=== PATIENT | female | born 1940 | race African-American/Black ===

== ENCOUNTER 2019-10-17 11:03 | Observation (INO) | payer OTHER ==
--- OUTSIDE RECORDS SUMMARY | 2019-10-17 11:19 | XMS REPORT | Summary of Care ---
:1940 Author Organization [facility] Address [address] [place] [address] Care Team Providers Name Role Phone Karma Angulo MD Patrol Guard David Dubose MD Primary Care Provider Reason for Visit Reason Comments REFERRAL Encounter Details Date Type Department Care Team Description 06/03/2019 Patient Outreach [facility] Family DarlenekamleshAnthonyKarla, REFERRAL Medicine [place] [address] [phone] [place] [address] [phone] Allergies Active Allergy Reactions Severity Noted Date Comments Penicillins Anaphylaxis 08/22/2014 documented as of this encounter (statuses as of 06/03/2019) Medications Medication Sig Dispensed Refills Start Date End Date Status butalbital-acetaminop Take 2 tablets 10 tablet 0 05/27/2019 Active hen-caff 50-325-40 mg by mouth 2 (two) tabletIndications: times daily as Head and face pain needed (severe headaches). carvedilol 6.25 mg Take 1 tablet by 60 tablet 1 05/27/2019 Active tabletIndications: mouth 2 (two) Essential times daily with hypertension meals. famotidine 40 mg Take 1 tablet by 30 tablet 0 05/27/2019 Active tabletIndications: mouth daily. Abdominal pain, unspecified abdominal location gabapentin 300 mg Take 1 capsule 90 capsule 1 05/27/2019 Active capsuleIndications: by mouth 2 (two) Neuropathy times daily. hydrALAZINE 100 mg Take 1 tablet by 270 tablet 3 05/27/2019 Active tabletIndications: mouth every 8 Essential (eight) hours. hypertension ipratropium-albuterol USE ONE AMPULE 3 Box 3 05/27/2019 Active 0.5 mg-3 mg(2.5 mg IN NEBULIZER base)/3 mL nebulizer EVERY 6 HOURS solutionIndications: Chronic obstructive pulmonary disease, unspecified COPD type Magnesium Oxide 420 Take 400 mg by 30 tablet 0 05/27/2019 Active mg TabIndications: mouth daily. Abdominal pain, unspecified abdominal location ondansetron (ZOFRAN) Take 1 tablet by 12 tablet 0 05/27/2019 Active 4 mg mouth every 8 tabletIndications: (eight) hours as Abdominal pain, needed for unspecified abdominal Nausea and location Vomiting (N/V). proMETHazine 25 mg Take 1 tablet by 30 tablet 0 05/27/2019 Active tabletIndications: mouth 3 (three) Abdominal pain, times daily as unspecified abdominal needed for location Nausea and Vomiting (N/V). SERTraline 100 mg Take 1 tablet by 30 tablet 1 05/27/2019 Active tabletIndications: mouth daily. Anxiety traMADol 50 mg Take 1 tablet by 20 tablet 0 05/27/2019 Active tabletIndications: mouth every 6 Primary (six) hours as osteoarthritis of needed (pain). both knees, Other chronic pain zolpidem (AMBIEN) 5 Take 1 tablet by 30 tablet 5 05/27/2019 06/26/2019 Active mg tabletIndications: mouth at bedtime Primary insomnia as needed for Insomnia for up to 30 days. documented as of this encounter (statuses as of 06/03/2019) Active Problems Problem Noted Date Acute renal failure superimposed on stage 3 chronic kidney disease, 05/29/2019 unspecified acute renal failure type Stage 3 chronic kidney disease 05/29/2019 Head and face pain 05/27/2019 ARNULFO (acute kidney injury) 03/19/2019 Obesity (BMI 30-39.9) 02/04/2019 SOB (shortness of breath) 11/26/2018 Other headache syndrome 10/03/2018 Chronic pain 10/03/2018 Electrolyte abnormality 07/02/2018 UTI (urinary tract infection) 06/18/2018 Pulmonary embolism 06/29/2017 Abdominal pain 06/11/2017 Hypertensive urgency 06/11/2017 Type 2 diabetes mellitus without complication, without long-term current 12/05 use of insulin Left knee pain 08/30/2016 Prediabetes 02/27/2015 Abnormal renal function 02/27/2015 Anxiety 01/27/2015 Insomnia 12/22/2014 Osteoarthritis 12/22/2014 Mixed hyperlipidemia 12/22/2014 Chronic diastolic congestive heart failure 08/22/2014 Neuropathy Bradycardia Anemia COPD (chronic obstructive pulmonary disease) Essential hypertension, benign GERD (gastroesophageal reflux disease) documented as of this encounter (statuses as of 06/03/2019) Resolved Problems Problem Noted Date Resolved Date Elevated troponin 02/04/2019 05/27/2019 E44.0 Moderate protein calorie malnutrition 02/04/2019 05/27/2019 Recurrent UTI 10/03/2018 05/27/2019 Diarrhea 10/03/2018 05/27/2019 Dehydration 10/02/2018 05/27/2019 Hyperkalemia 06/14/2018 05/27/2019 SOB (shortness of breath) 06/29/2017 10/08/2017 Nausea & vomiting 06/11/2017 10/08/2017 Chest pain 06/10/2017 10/08/2017 Morbid obesity with body mass index of 40.0-49.9 11/11/2016 10/08/2017 Morbid obesity with body mass index of 50 or higher 11/11/2016 10/08/2017 CHF exacerbation 03/03/2016 12/05/2016 Cataract 05/27/2019 Hypercalcemia 05/27/2019 Overview: borderline documented as of this encounter (statuses as of 06/03/2019) Immunizations Name Administration Dates Next Due Influenza High Dose 10/03/2018, 10/26/2016 Pneumococcal 13 Conjugate, PCV13 (Prevnar 13) 12/05/2016 documented as of this encounter Social History Tobacco Use Types Packs/Day Years Used Date Former Smoker 0.15 30 Quit: 08/22/1994 Smokeless Tobacco: Never Used Alcohol Use Drinks/Week oz/Week Comments No Sex Assigned at Date Recorded Not on file Job Start Date Occupation Industry Not on file Not on file Not on file Travel History Travel Start Travel End No recent travel history available. documented as of this encounter Last Filed Vital Signs Not on filedocumented in this encounter Progress Notes Karla Snow, Y[place] - 06/03/2019 2:14 PM CDTSOCIAL WORK NOTE: BUSINESS OFFICE COORDINATOR received referral for medication education. Patient is not homebound per MD and chart so referral to [facility] completed for medication education for patient and family. Karla Snow LMSW, [facility]- Ambulatory Batt Machine Operator- Letter Carrier TC: [phone] [place] PCP: [phone] documented in this encounter Plan of Treatment Date Type Specialty Care Team Description 06/04/2019 Office Visit Family Medicine Yony Wilhelm MD [address] [place] [address] [address] [phone] 08/27/2019 Office Visit Nephrology Layla Woods, LANABS [id number] [place] [address] [phone] 11/19/2019 Director Of Development And Marketing Visit Endocrinology Diabetes & MacarioPayal monaco, RD Metabolism [address] [place] [address] [phone] Health Maintenance Due Date Last Done Comments DTaP,Tdap,and Td Vaccines 06/04/2019 Postponed from (1 - Tdap) 1957 (Patient Ill Today) FOOT EXAM 06/04/2019 Postponed from 1956 (Patient Ill Today) Osteoporosis Screening 06/04/2019 Postponed from 2003 (Patient Ill Today) PNEUMOCOCCAL VACCINES 65+ 06/04/2019 12/05/2016 Postponed from (2 of 2 - PPSV23) 12/05/2017 (Patient Ill Today) Zoster Recombinant Vaccine 06/04/2019 Postponed from (SHINGRIX) (1 of 2) 1988 (Patient Ill Today) INFLUENZA VACCINE 07/07/2019 10/03/2018, 10/26/2016 HgA1C 11/28/2019 05/28/2019, 03/18/2019, 05/01/2018, Additional history exists EYE EXAM 12/06/2019 12/06/2018 CREATININE (SERUM) 05/28/2020 05/28/2019, 05/01/2019, 04/29/2019, Additional history exists LDL-C 05/28/2020 05/28/2019, 06/05/2017, 08/28/2015, Additional history exists URINE MICROALBUMIN 05/28/2020 05/28/2019, 08/28/2015 Medicare Wellness Visit 05/29/2020 Postponed from 2003 (Patient Refused) documented as of this encounter Implants Implanted Type Area Podiatrist Orthopedic Device Shelf Model / Identifier Expiration Date Serial / Lot Iol LENS Right: Jamil 11/05/2021 [id number] / Implanted: Qty: 1 on 12/06/2017 by Marco Schaeffer MD at [facility] Eye [id number] / [id number] Acrysofiq LENS Right: Jamil 01/03/2022 [id number] / Implanted: Qty: 1 on 12/20/2017 by Marco Schaeffer MD at [facility] Eye [id number] / [id number] documented as of this encounter Results Not on filedocumented in this encounter Insurance Payer Benefit Plan / Subscriber ID Effective Dates Phone Address Type Group MEDICARE MEDICARE PART xxxxxxxxxxx 1993-Rowena [phone] [address] Medicare A [address] [id number] [place] [id number] documented as of this encounter
--- OUTSIDE RECORDS SUMMARY | 2019-10-17 11:19 | XMS REPORT | Summary of Care ---
:1940 Author Organization [facility] Address [address] [place] [address] Care Team Providers Name Role Phone Karma Angulo MD Record Clerk Salesperson David Dubose MD Primary Care Provider Reason for Visit Reason Comments Forms Requesting more information Encounter Details Date Type Department Care Team Description 05/29/2019 Telephone [facility] Pediatric Yony Wilhelm MD Forms (Requesting more and Adult Primary [address] [place] [address] Dr information) [address] , [place] [address] [address] [place] [address] Allergies Active Allergy Reactions Severity Noted Date Comments Penicillins Anaphylaxis 08/22/2014 documented as of this encounter (statuses as of 05/31/2019) Medications Medication Sig Dispensed Refills Start Date [...] as of this encounter (statuses as of 05/31/2019) Active Problems Problem Noted Date Acute renal [...] as of this encounter (statuses as of 05/31/2019) Resolved Problems Problem Noted Date Resolved Date [...] as of this encounter (statuses as of 05/31/2019) Immunizations Name Administration Dates Next Due Influenza [...] Signs Not on filedocumented in this encounter Plan of Treatment Date Type Specialty Care Team Description 06/04/2019 Office Visit Family Medicine Yony Wilhelm MD [address] [place] [address] [place] [address] [phone] 08/27/2019 Office Visit Nephrology Layla Woods, LANABS [id number] [place], [place] [address] 11/19/2019 Jamb Cutter Visit Endocrinology Diabetes & MacarioPayal monaco, RD Metabolism [address] [place] [address] Health Maintenance Due Date Last Done Comments [...] of this encounter Implants Implanted Type Area E D Tech Device Shelf Model / Identifier Expiration Date Serial / Lot Iol LENS Right: Jamil 11/05/2021 [id number] / Implanted: Qty: 1 on 12/06/2017 by Marco Schaeffer MD at [facility] Eye [id number] / [id number] Acrysofiq LENS Right: Jamil 01/03/2022 [id number] / Implanted: Qty: 1 on 12/20/2017 by Marco Schaeffer MD at [facility] Eye [id number] / [id number] documented as of this encounter Results Not on filedocumented in this encounter Insurance Payer Benefit Plan / Subscriber ID Effective Dates Phone Address Type Group MEDICARE MEDICARE PART xxxxxxxxxxx 1991-Rowena [phone] [address] [facility] Medicare A & B t 2 [id number] [place] [id number] documented as of this encounter
--- OUTSIDE RECORDS SUMMARY | 2019-10-17 11:20 | XMS REPORT | Summary of Care ---
:1940 Author Organization [facility] Address [address] [place] [address] Care Team Providers Name Role Phone Karma Angulo MD Appian B[employer] Developer David Dubose MD Primary Care Provider Reason for Referral (Routine) Status Reason Specialty Diagnoses / Referred By Referred To Procedures Contact Contact New Request Nephrology Diagnoses Stage 3 chronic kidney disease Yony Wilhelm, Procedures CONSULT/REFERRAL NEPHROLOGY [address] [place] [address] Dr Schulte [address] [place] [address] (Routine) Status Reason Specialty Diagnoses / Referred By Referred To Procedures Contact Contact Closed Public Health & Diagnoses Medicare annual wellness visit, subsequent Yony Wilhelm, General Preventive Procedures CONSULT/REFERRAL MEDICARE ANNUAL WELLNESS VISIT MD Montes [address] [place] [address] Dr Schulte [address] [place] [address] Reason for Visit Reason Comments Follow-up Hypertension Headache 08/15 Refill Request Encounter Details Date Type Department Care Team Description 05/27/2019 Office Visit [facility] Yony Wilhelm, Hypertensive urgency (Primary Dx); Pediatric and Adult Medicare annual wellness visit, subsequent; Primary Care- [address] [place] [address] Dr Pino; [place] [address] Epigastric pain; [address] [place] [address] , [place] [address] Essential hypertension; [address] Abdominal pain, unspecified abdominal location; [place], [place] Primary insomnia; [address] Encounter for medication refill; [phone] Hyperkalemia; Hypercalcemia; Anemia, unspecified type; Type 2 diabetes mellitus without complication, without long-term current use of insulin; Head and face pain; Chronic obstructive pulmonary disease, unspecified COPD type; Mixed hyperlipidemia; Neuropathy; Primary osteoarthritis of both knees; Other chronic pain; Stage 3 chronic kidney disease Allergies Active Allergy Reactions Severity Noted Date Comments Penicillins Anaphylaxis 08/22/2014 documented as of this encounter (statuses as of 06/04/2019) Medications Medication Sig Dispensed Refills Start Date End Date Status butalbital-acetamino Take 2 tablets 10 tablet 0 05/27/2019 Active phen-caff 50-325-40 by mouth 2 mg (two) times tabletIndications: daily as Head and face pain needed (severe headaches). carvedilol 6.25 mg Take 1 tablet 60 tablet 1 05/27/2019 Active tabletIndications: by mouth 2 Essential (two) times hypertension daily with meals. famotidine 40 mg Take 1 tablet 30 tablet 0 05/27/2019 Active tabletIndications: by mouth Abdominal pain, daily. unspecified abdominal location gabapentin 300 mg Take 1 capsule 90 capsule 1 05/27/2019 Active capsuleIndications: by mouth 2 Neuropathy (two) times daily. hydrALAZINE 100 mg Take 1 tablet 270 tablet 3 05/27/2019 Active tabletIndications: by mouth every Essential 8 (eight) hypertension hours. ipratropium-albutero USE ONE AMPULE 3 Box 3 05/27/2019 Active l 0.5 mg-3 mg(2.5 mg IN NEBULIZER base)/3 mL nebulizer EVERY 6 HOURS solutionIndications: Chronic obstructive pulmonary disease, unspecified COPD type Magnesium Oxide 420 Take 400 mg by 30 tablet 0 05/27/2019 Active mg TabIndications: mouth daily. Abdominal pain, unspecified abdominal location ondansetron (ZOFRAN) Take 1 tablet 12 tablet 0 05/27/2019 Active 4 mg by mouth every tabletIndications: 8 (eight) Abdominal pain, hours as unspecified needed for abdominal location Nausea and Vomiting (N/V). proMETHazine 25 mg Take 1 tablet 30 tablet 0 05/27/2019 Active tabletIndications: by mouth 3 Abdominal pain, (three) times unspecified daily as abdominal location needed for Nausea and Vomiting (N/V). SERTraline 100 mg Take 1 tablet 30 tablet 1 05/27/2019 Active tabletIndications: by mouth Anxiety daily. traMADol 50 mg Take 1 tablet 20 tablet 0 05/27/2019 Active tabletIndications: by mouth every Primary 6 (six) hours osteoarthritis of as needed both knees, Other (pain). chronic pain zolpidem (AMBIEN) 5 Take 1 tablet 30 tablet 5 05/27/2019 Active mg by mouth at 9 tabletIndications: bedtime as Primary insomnia needed for Insomnia for up to 30 days. butalbital-acetamino Take 2 tablets 10 tablet 0 10/03/2018 Discontinued phen-caff 50-325-40 by mouth 2 9 mg tablet (two) times daily as needed (severe headaches). magnesium oxide 420 Take 400 mg by 30 tablet 0 10/03/2018 Discontinued mg Tab mouth daily. 9 carvedilol 6.25 mg Take 1 tablet 60 tablet 1 11/28/2018 Discontinued tabletIndications: by mouth 2 9 Anxiety (two) times daily with meals. SERTraline 100 mg Take 1 tablet 30 tablet 1 11/28/2018 Discontinued tabletIndications: by mouth 9 Anxiety daily. zolpidem (AMBIEN) 5 Take 1 tablet 305 tablet 5 12/07/2018 Discontinued mg by mouth at 9 tabletIndications: bedtime as Primary insomnia needed for Insomnia. hydralAZINE 100 mg Take 1 tablet 270 tablet 3 12/16/2018 Discontinued tabletIndications: by mouth every 9 Essential 8 (eight) hypertension, benign hours. gabapentin 300 mg Take 1 capsule 90 capsule 1 12/23/2018 Discontinued capsuleIndications: by mouth 2 9 Anxiety (two) times daily. IPRATROPIUM-ALBUTERO USE ONE AMPULE 3 Box 3 12/21/2018 Discontinued L 0.5 mg-3 mg(2.5 mg IN NEBULIZER 9 base)/3 mL nebulizer EVERY 6 HOURS solution hydralAZINE 100 mg Take 1 tablet 30 tablet 0 01/27/2019 Discontinued tabletIndications: by mouth every 9 Essential 8 (eight) hypertension, hours. Medication refill ondansetron (ZOFRAN) Take 1 tablet 12 tablet 0 01/27/2019 Discontinued 4 mg by mouth every 9 tabletIndications: 8 (eight) Essential hours as hypertension needed for Nausea and Vomiting (N/V). famotidine 40 mg Take 1 tablet 30 tablet 0 02/01/2019 Discontinued tabletIndications: by mouth 9 Epigastric pain daily. traMADOL 50 mg Take 1 tablet 20 tablet 0 02/01/2019 Discontinued tabletIndications: by mouth every 9 Epigastric pain 6 (six) hours as needed (pain). ondansetron 4 mg Take 2 tablets 20 tablet 0 02/01/2019 Discontinued tabletIndications: by mouth every 9 Epigastric pain 8 (eight) hours as needed for Nausea and Vomiting (N/V). proMETHazine 25 mg Take 1 tablet 30 tablet 0 02/05/2019 Discontinued tabletIndications: by mouth 3 9 Abdominal pain, (three) times unspecified daily as abdominal location needed for Nausea and Vomiting (N/V). zolpidem (AMBIEN) 5 Take 1 tablet 305 tablet 5 05/27/2019 Discontinued mg by mouth at 9 tabletIndications: bedtime as Primary insomnia needed for Insomnia. Hospital, Clinic, or Other Ordered Dose Route Frequency Start Date End Date Status Facility Administered Medication cloNIDine (CATAPRES) tablet 0.2 mg Oral ONCE 05/27/2019 05/27/2019 Ended 0.2 mgIndications: Hypertensive urgency documented as of this encounter (statuses as of 06/04/2019) Active Problems Problem Noted Date Acute renal [...] as of this encounter (statuses as of 06/04/2019) Resolved Problems Problem Noted Date Resolved Date [...] as of this encounter (statuses as of 06/04/2019) Immunizations Name Administration Dates Next Due Influenza [...] of this encounter Last Filed Vital Signs Vital Sign Reading Time Taken Comments Blood Pressure 149/76 05/27/2019 11:52 AM CDT Pulse 78 05/27/2019 11:01 AM CDT Temperature 35.9 C (96.7 F) 05/27/2019 11:01 AM CDT Respiratory Rate 18 05/27/2019 11:01 AM CDT Oxygen Saturation 99% 05/27/2019 11:01 AM CDT Inhaled Oxygen Concentration - - Weight 91.2 kg (201 lb 1.6 oz) 05/27/2019 11:01 AM CDT Height - - Body Mass Index 36.78 03/18/2019 11:38 PM CDT documented in this encounter Progress Notes Yony Wilhelm MD - 05/27/2019 10:30 AM CDT Family Medicine Clinic Follow up visit Visit date: 05/27/2019 Chief complaint: Follow-up; Hypertension; Headache (08/15); and Refill Request HPI: Daksha Olson is a 78 year old female w/ PMHx below who presented to the clinic for follow-up s/p rehab for fall at home. She is accompanied with her daughter (Megan Pederson). At this visit, patient notes she completed rehab last week at [facility]. Patient can walk independently using a walker with wheels. Today, she c/o headache 08/15 for a while for almost a year. She received botox injection in the past to help with headaches. Patient is currently out of all her medications since completing rehab and requests refills. Otherwise, denies F/C/N/V chest pain or SOB. PAST MEDICAL HISTORY: Past Medical History: Diagnosis Date Anemia Anxiety Bradycardia Cataract CKD (chronic kidney disease) COPD (chronic obstructive pulmonary disease) Depression Diabetes mellitus Essential hypertension, benign well controlled GERD (gastroesophageal reflux disease) well controlled Heart disease History of pulmonary embolism 2017 was on blood thinners for several months History of stroke remote lacunar stroke seen on CT from 06/2018. Hypercalcemia borderline Insomnia Left knee pain 08/30/2016 Neuropathy Obesity Other and unspecified hyperlipidemia Prediabetes Recurrent UTI 10/03/2018 Unspecified hypothyroidism Unspecified vitamin D deficiency UTI (urinary tract infection) due to Enterococcus Constitutional: In some discomfort Head/neck: headache Eyes: negative Ears: negative Nose/Sinuses: negative Mouth/Throat: negative Cardiovascular: negative Respiratory: negative Gastrointestinal: negative Genitourinary: negative Musculoskeletal: negative Integumentary: negative Neuro: negative Psych: negative Endocrine: negative Hem/Lymph: negative Allergy/Immunology: negative MEDS: Outpatient Medications Marked as Taking for the 05/27/19 encounter (Office Visit ) with Yony Wilhelm MD Medication Sig Dispense Refill wwimlpzmrv-vbygdbxvdenek-ileq 50-325-40 mg tablet Take 2 tablets by mouth 2 (two) times daily asneeded (severe headaches). 10 tablet 0 carvedilol 6.25 mg tablet Take 1 tablet by mouth 2 (two) times daily with meals. 60 tablet 1 famotidine 40 mg tablet Take 1 tablet by mouth daily. 30 tablet 0 gabapentin 300 mg capsule Take 1 capsule by mouth 2 (two) times daily. 90 capsule 1 hydrALAZINE 100 mg tablet Take 1 tablet by mouth every 8 (eight) hours. 270 tablet 3 ipratropium-albuterol 0.5 mg-3 mg(2.5 mg base)/3 mL nebulizer solution USE ONE AMPULE IN NEBULIZER EVERY 6 HOURS 3 Box 3 Magnesium Oxide 420 mg Tab Take 400 mg by mouth daily. 30 tablet 0 ondansetron (ZOFRAN) 4 mg tablet Take 1 tablet by mouth every 8 (eight) hours as needed for Nausea and Vomiting (N/V). 12 tablet 0 proMETHazine 25 mg tablet Take 1 tablet by mouth 3 (three) times daily as needed for Nausea and Vomiting (N/V). 30 tablet 0 SERTraline 100 mg tablet Take 1 tablet by mouth daily. 30 tablet 1 traMADol 50 mg tablet Take 1 tablet by mouth every 6 (six) hours as needed ( pain). 20 tablet 0 zolpidem (AMBIEN) 5 mg tablet Take 1 tablet by mouth at bedtime as needed for Insomnia for up to30 days. 30 tablet 5 PHYSICAL EXAM: Blood pressure (!) 149/76, pulse 78, temperature 35.9 C (96.7 F), temperature source Temporal Artery, resp. rate 18, weight 201 lb 1.6 oz (91.2 kg ), SpO2 99 %. Appearance: comfortable, no distress Eye: normal external eye, corneas clear, conjunctiva and sclera normal and pupils equal, round, reactive to light Ear: normal TM's bilaterally, normal auditory canals and external ears non- tender Nose: nares normal, septum midline, mucosa pink and moist with no drainage or sinus tenderness Oropharynx: moist mucus membranes, no erythema or tonsillar enlargement Neck: neck supple with no rigidity Cardiovascular: regular rate and rhythm, no murmur Respiratory: clear to auscultation and percussion, bilaterally Abdomen: soft, non-tender, non-distended, no liver, spleen or abnormal masses palpated Musculoskeletal: no clubbing, cyanosis or edema, peripheral pulses 2+ in all extremities Neurologic: normal gait and station Psychiatric: alert, oriented, with appropriate affect Skin: skin color, texture and turgor are normal; no bruising, rashes or lesions noted LABS: Reviewed with patient and daughter, all questions answered Imaging: N/A ASSESSMENT/PLAN: Daksha Olson is a 78 year old female seen for establishment of care with a new provider including: Hypertensive urgency - BP also elevated as complication of chronic pain syndrome - Need for medication compliance discussed - Need to keep home BP log - cloNIDine (CATAPRES) tablet 0.2 mg - FREE T4 - THYROID STIMULATING HORMONE - MAGNESIUM - PHOSPHORUS - COMP. METABOLIC PANEL (15387) - CBC WITH DIFF - CBC WITH DIFFERENTIAL History Essential hypertension - carvedilol 6.25 mg tablet; Take 1 tablet by mouth 2 (two) times daily with meals. Dispense: 60 tablet; Refill: 1 - hydrALAZINE 100 mg tablet; Take 1 tablet by mouth every 8 (eight) hours. Dispense: 270 tablet; Refill: 3 History of Stage 3 Chronic Kidney Disease - Complicating BP - Abnormal microalbumin. - MicroAl/Cr 67,742 consistent with probable insufficient glomerular filtration and hx CKD. - Need to follow-up with Nephrology. Head and face pain - ipbotmzkxo-jlhnakkcufvbd-yxqi 50-325-40 mg tablet; Take 2 tablets by mouth 2 ( two) times daily as needed (severe headaches). Dispense: 10 tablet; Refill: 0 History Abdominal pain, unspecified abdominal location - r/o chronic constipation. Patient encouraged to maintain hydration, fruits to promote regular bowel movement - famotidine 40 mg tablet; Take 1 tablet by mouth daily. Dispense: 30 tablet; Refill: 0 - Magnesium Oxide 420 mg Tab; Take 400 mg by mouth daily. Dispense: 30 tablet; Refill: 0 - ondansetron (ZOFRAN) 4 mg tablet; Take 1 tablet by mouth every 8 (eight) hours as needed for Nausea and Vomiting (N/V). Dispense: 12 tablet; Refill: 0 - proMETHazine 25 mg tablet; Take 1 tablet by mouth 3 (three) times daily as needed for Nausea and Vomiting (N/V). Dispense: 30 tablet; Refill: 0 Chronic obstructive pulmonary disease, unspecified COPD type - ipratropium-albuterol 0.5 mg-3 mg(2.5 mg base)/3 mL nebulizer solution; USE ONE AMPULE IN NEBULIZER EVERY 6 HOURS Dispense: 3 Box; Refill: 3 Mixed hyperlipidemia - LIPID PANEL (37022)(TOTAL CHOLESTEROL, TRIGLYCERIDES, HDL) Neuropathy - gabapentin 300 mg capsule; Take 1 capsule by mouth 2 (two) times daily. Dispense: 90 capsule; Refill: 1 Primary osteoarthritis of both knees - Complicated by history other chronic pain syndrome (neck, joints) - traMADol 50 mg tablet; Take 1 tablet by mouth every 6 (six) hours as needed ( pain). Dispense: 20 tablet; Refill: 0 Need for Medicare annual wellness visit, subsequent - CONSULT/REFERRAL MEDICARE ANNUAL WELLNESS VISIT Anxiety - SERTraline 100 mg tablet; Take 1 tablet by mouth daily. Dispense: 30 tablet; Refill: 1 Primary insomnia - zolpidem (AMBIEN) 5 mg tablet; Take 1 tablet by mouth at bedtime as needed for Insomnia for up to 30 days. Dispense: 30 tablet; Refill: 5 Anemia, unspecified type - IRON Type 2 diabetes mellitus without complication, without long-term current use of insulin - GLYCOSYLATED HEMOGLOBIN (A1C) - MICROALBUMIN URINE Medication reconciliation and anticipatory guidance completed. Patient instructed to call or return to clinic as needed if these symptoms worsen or fail to improve as anticipated. Plan of care discussed with patient and patient verbalized understanding. Side effects of medication prescribed discussed and patient instructed to call clinic back if any should occur Follow-up: 1 week for annual medicare examiantion, subsequent >50% of visit was for counseling and coordination of care with patient as documented under plans above. Total visit time 30 Minutes. Future Appointments Provider Department Dept Phone Center 06/04/2019 9:15 AM Yony Wilhelm MD [facility] Pediatric and Adult Primary Care- [place] [phone] [facility] Lolis Tian LVN - 05/27/2019 10:30 AM CDT78 year old female has been identified by and name, patient has given verbal consent to receive Clonidine 0.2 mg via oral administration, as ordered by the provider. Previous/Current Encounter Diagnosis: Hypertension Patient education included information about the desired effects of the medication(s) given in the clinic today. Lolis Zuniga LVN 05/27/2019 11:20 AM documented in this encounter Plan of Treatment Date Type Specialty Care Team Description 08/27/2019 Office Visit Nephrology Layla Woods, LANABS [id number] [place] [address] 11/19/2019 Braille Proofreader Visit Endocrinology Diabetes & MacarioPayal monaco, RD Metabolism [address] [place] [address] Health Maintenance Due Date Last [...] of this encounter Implants Implanted Type Area String Top Sealer Device Shelf Model / Identifier Expiration Date Serial / Lot Iol LENS Right: Jamil 11/05/2021 [id number] / Implanted: Qty: 1 on 12/06/2017 by Marco Schaeffer MD at [facility] [id number] / [id number] Acrysofiq LENS Right: Jamil 01/03/2022 [id number] / Implanted: Qty: 1 on 12/20/2017 by Marco Schaeffer MD at [facility] [id number] / [id number] documented as of this encounter Procedures Procedure Name Priority Date/Time Associated Diagnosis Comments CBC WITH Routine 05/28/2019 12:40 Hypertensive urgency Results for this DIFFERENTIAL PM CDT procedure are in the results section. GLYCOSYLATED Routine 05/28/2019 12:40 Type 2 diabetes Results for this HEMOGLOBIN (A1C) PM CDT mellitus without procedure are in complication, without the results long-term current use section. of insulin CBC WITH DIFF Routine 05/28/2019 12:40 Hypertensive urgency Results for this PM CDT procedure are in the results section. LIPID PANEL Routine 05/28/2019 12:40 Mixed hyperlipidemia Results for this (02256)(TOTAL PM CDT procedure are in CHOLESTEROL, the results TRIGLYCERIDES, HDL) section. COMP. METABOLIC Routine 05/28/2019 12:40 Hypertensive urgency Results for this PANEL (99388) PM CDT procedure are in the results section. MICROALBUMIN URINE Routine 05/28/2019 12:40 Type 2 diabetes Results for this PM CDT mellitus without procedure are in complication, without the results long-term current use section. of insulin THYROID STIMULATING Routine 05/28/2019 12:40 Hypertensive urgency Results for this HORMONE PM CDT procedure are in the results section. FREE T4 Routine 05/28/2019 12:40 Hypertensive urgency Results for this PM CDT procedure are in the results section. IRON Routine 05/28/2019 12:40 Anemia, unspecified Results for this PM CDT type procedure are in the results section. MAGNESIUM Routine 05/28/2019 12:40 Hypertensive urgency Results for this PM CDT procedure are in the results section. PHOSPHORUS Routine 05/28/2019 12:40 Hypertensive urgency Results for this PM CDT procedure are in the results section. documented in this encounter Results LIPID PANEL (18060)(TOTAL CHOLESTEROL, TRIGLYCERIDES, HDL) (05/28/2019 12:40 PM CDT) CHOL 212 (H) 120 - 200 mg/dL [facility] HDL 47 (L) >50 mg/dL [facility] HDLC RATIO 4.5 <=4.5 [facility] TRIG 113 30 - 170 mg/dL [facility] LDL CHOL 142 <=160 mg/dL [facility] VLDL 23 5 - 60 mg/dL [facility] Specimen Blood Performing Organization Address City/State/Zipcode Phone Number [facility] CLIA: [id number], [address] [place] [address] MICROALBUMIN URINE (05/28/2019 12:40 PM CDT) CREAT U 39.2 mg/dL [facility] MICROALB U 235 (H) 0 - 45 ug/mL [facility] MICROAL/CR 67,742 (H) 0-3,500 ug/mmol [facility] creatinine SERVICES Specimen Urine - URINE, CLEAN CATCH Performing Organization Address City/State/Zipcode Phone Number [facility] CLIA: [id number], [address] [place] [id number] [phone] [facility] GLYCOSYLATED HEMOGLOBIN (A1C) (05/28/2019 12:40 PM CDT) HGB A1C 4.7 4.0 - 6.0 % NGSP [facility] Specimen Blood Narrative Performed At %A1C (NGSP) Interpretation (ADA) [facility] 4.8-5.6 Normal or (Non-Diabetic Range) 5.7-6.4 Increased Risk (Pre-Diabetic) >6.5Diabetes Indicated Performing Organization Address [facility] Phone Number [facility] CLIA: [id number], [address] [place] [address] CBC WITH DIFFERENTIAL (05/28/2019 12:40 PM CDT) WBC 5.95 4.30 - 11.10 [facility] 10*3/L HOSPITAL LABORATORY RBC 3.30 (L) 3.93 - 5.25 [facility] 10*6/L HOSPITAL LAB[facility]ORY HGB 8.9 (L) 11.6 - 15.0 [facility] g/dL HOSPITAL LAB[facility] HCT 26.7 (L) 35.7 - 45.2 % [facility] MCV 80.9 80.6 - 95.5 fL [facility] MCH 27.0 25.9 - 32.8 pg [facility] MCHC 33.3 31.6 - 35.1 [facility] g/dL [facility] RDW-SD 40.8 39.0 - 49.9 fL [facility] RDW-CV 13.9 12.0 - 15.5 % [facility] PLT 188 166 - 358 [facility] 10*3/L [facility] MPV 10.2 9.5 - 12.9 fL [facility] NRBC/100 WBC 0.0 0.0 - 10.0 /100 [facility] WBCs [facility] NRBC x10^3 <0.01 10*3/L [facility] GRAN MAT (NEUT) % 32.0 % [facility] IMM GRAN % 0.30 % [facility] LYMPH % 52.9 % [facility] MONO % 10.1 % [facility] EOS % 4.2 % [facility] BASO % 0.5 % [facility] GRAN MAT x10^3(ANC) 1.90 1.88 - 7.09 [facility] 10*3/uL HOSPITAL LABORATORY IMM GRAN x10^3 <0.03 0.00 - 0.06 [facility] 10*3/uL HOSPITAL LAB[facility]ORY LYMPH x10^3 3.15 1.32 - 3.29 [facility] 10*3/uL HOSPITAL LAB[facility]ORY MONO x10^3 0.60 0.33 - 0.92 [facility] 10*3/uL HOSPITAL LAB[facility]ORY EOS x10^3 0.25 0.03 - 0.39 [facility] 10*3/uL HOSPITAL LAB[facility]ORY BASO x10^3 0.03 0.01 - 0.07 [facility] 10*3/uL HOSPITAL LABORATORY Specimen Blood Performing Organization Address City/State/Zipcode Phone Number [facility] CLIA: [id number], [address] [place] [address] COMP. METABOLIC PANEL (61102) (05/28/2019 12:40 PM CDT) NA 140 135 - 145 [facility] mmol/L [facility] K 5.2 (H) 3.5 - 5.0 [facility] mmol/L [facility] CL 109 (H) 98 - 108 mmol/L [facility] CO2 TOTAL 22 (L) 23 - 31 mmol/L [facility] AGAP 9 2 - 16 [facility] BUN 39 (H) 7 - 23 mg/dL [facility] GLUCOSE 64 (L) 70 - 110 mg/dL [facility] CREATININE 2.02 (H) 0.50 - 1.04 [facility] mg/dL [facility] TOTAL BILI 0.2 0.1 - 1.1 mg/dL [facility] CALCIUM 10.2 8.6 - 10.6 [facility] mg/dL [facility] T PROTEIN 6.7 6.3 - 8.2 g/dL [facility] ALBUMIN 3.8 3.5 - 5.0 g/dL [facility] ALK PHOS 84 34 - 122 U/L [facility] ALT(SGPT) 12 9 - 51 U/L [facility] AST(SGOT) 27 13 - 40 U/L [facility] eGFR Calculation 23.7 mL/min/1.73m2 [facility] ([facility] LABORATORY [place]) eGFR Calculation 28.7 mL/min/1.73m2 [facility] () [facility] Specimen Blood Narrative Performed At Association of Glomerular Filtration Rate (GFR) [facility] and Staging of Kidney Disease* + + +- + | GFR (mL/min/1.73 m2)| With Kidney Damage|Without Kidney Damage + + +- + |>90| Stage one| Normal + + +- + |60-89|S tage two| Decreased GFR + + +- + |30-59|S tage three| Stage three + + +- + |15-29|S tage four | Stage four + + +- + |<15 (or dialysis)|Stage five | Stage five + + +- + *Each stage assumes the associated GFR level has been in effect for at least three months.Stages 1 to 5, with or without kidney disease, indicate chronic kidney disease. Notes: Determination of stages one and two (with eGFR >59mL/min/1.73 m2) requires estimation of kidney damage for at least three months as defined by structural or functional abnormalities of the kidney, manifested by either: Pathological abnormalities or Markers of kidney damage (including abnormalities in the composition of the blood or urine or abnormalities in imaging tests). Performing Organization Address [facility] Phone Number [facility] CLIA: [id number], [address] [place] [address] PHOSPHORUS (05/28/2019 12:40 PM CDT) PHOSPHORUS 4.0 2.5 - 5.0 mg/dL [facility] Specimen Blood Performing Organization Address [facility] Phone Number [facility] CLIA: [id number], [address] [place] [address] MAGNESIUM (05/28/2019 12:40 PM CDT) MAGNESIUM 2.0 1.7 - 2.4 mg/dL [facility] Specimen Blood Performing Organization Address [facility] [place] Phone Number [facility] CLIA: [id number], [address] [place] [address] THYROID STIMULATING HORMONE (05/28/2019 12:40 PM CDT) TSH 1.87 0.45 - 4.70 mIU/L [facility] Specimen Blood Performing Organization Address [facility] [place] Phone Number [facility] CLIA: [id number], [address] [place] [address] FREE T4 (05/28/2019 12:40 PM CDT) FREE T4 0.78 0.78 - 2.20 ng/dL [facility] Specimen Blood Performing Organization Address [facility] [place] Phone Number [facility] CLIA: [id number], [address] [place] [address] IRON (05/28/2019 12:40 PM CDT) IRON 77 50 - 160 ug/dL [facility] Specimen Blood Performing Organization Address City/State/Zipcode Phone Number [facility] CLIA: [id number], [address] [place] [address] documented in this encounter Visit Diagnoses Diagnosis Hypertensive urgency - Primary Unspecified essential hypertension Medicare annual wellness visit, subsequent Routine general medical examination at a health care facility Anxiety Anxiety state, unspecified Epigastric pain Abdominal pain, epigastric Essential hypertension Unspecified essential hypertension Abdominal pain, unspecified abdominal location Primary insomnia Persistent disorder of initiating or maintaining sleep Encounter for medication refill Issue of repeat prescriptions Hyperkalemia Hyperpotassemia Hypercalcemia Anemia, unspecified type Type 2 diabetes mellitus without complication, without long-term current use of insulin Head and face pain Headache Chronic obstructive pulmonary disease, unspecified COPD type Mixed hyperlipidemia Neuropathy Mononeuritis of unspecified site Primary osteoarthritis of both knees Primary localized osteoarthrosis, lower leg Other chronic pain Stage 3 chronic kidney disease documented in this encounter Administered Medications Medication Order MAR Action Action Date Dose Rate Site cloNIDine (CATAPRES) tablet 0.2 Given 05/27/2019 11:18 AM CDT 0.2 mg mg 0.2 mg, Oral, ONCE, 1 dose, 05/27/19 at 1215, Routine documented in this encounter Insurance Payer Benefit Plan / Subscriber ID Effective Dates Phone Address Type Group MEDICARE MEDICARE PART xxxxxxxxxxx 1991-Rowena [phone] [address] [id number] [place] [phone] documented as of this encounter"
--- OUTSIDE RECORDS SUMMARY | 2019-10-17 11:20 | XMS REPORT ---
:1940 [facility] Address [address] [place] [address] [address] [place] [address] Care Team Providers Name Role Phone Unavailable Unavailable Unavailable Payers Payer Name Policy Type Policy Number Effective Date Expiration Date Problems This patient has no known problems. Allergies, Adverse Reactions, Alerts Allergy Name Allergy Status Severity Reaction(s) Onset Inactive Treating Comments Type Date Date Clinician Penicillins DA Active U 2011-10 00:00:0 0 Medications This patient has no known medications. Results Test Description Test Time Test Comments Text Results Atomic Results Result Comments - CT 2019-02-19 FAX: Reyes Flores Jr [phone] [employer]: St: HEAD/BRAIN 11:19:00 REG W/O CONT Name: PERLITA SANCHEZ [facility] : 1940 Age/S: 78/F [address] Unit: [id number] Loc: [place] [address] Phys: Reyes Dominguez Jr, MD Acct: [id number] Dis Date: Status: REG CLI PHONE #: Exam Date: 02/19/2019 1055 FAX #: [phone] Reason: PAIN EXAMS: CPT CODE: [id number] CT HEAD/BRAIN W/O CONT [id number] EXAM: - CT HEAD/BRAIN W/O CONT Location code:C3 HISTORY: 78 years -old Female with PAIN TECHNIQUE: Axial CT images from the skull base to the vertex without intravenous contrast. Coronal and sagittal reformatted images were created from the data set. One or more of the following dose reduction techniques were used: Automated exposure control, adjustment of the mA and/or kV according to patient size, and/or utilization of iterative reconstruction technique. DLP: 1284.65 mGy-cm. COMPARISON: 2017 FINDINGS: Exam was limited due to patient motion despite repeated attempts. Portions of the inferior right posterior fossa are not within the field of view. Diminished attenuation in the periventricular white matter indicative of moderate chronic small vessel white matter ischemic disease is similar. No gross acute infarction, intraparenchymal mass, or mass effect. No hydrocephalus. No hemorrhage is seen. The visualized paranasal sinuses and calvarium are intact. IMPRESSION: 1. Limited exam due to patient motion despite repeated attempts. Moderate chronic small vessel white matter ischemic disease is present with no significant interval change. at 1119 Reported and signed by: Julián Hernandez MD CC: Reyes Dominguez Jr Technologist: NUPUR STOLL Trnscrd Dt/Tm: ([id number]) [email or web address] Orig Print D/T: S: 02/19/2019 ( 1122 PAGE 1 Signed Report
--- OUTSIDE RECORDS SUMMARY | 2019-10-17 11:21 | XMS REPORT | Summary of Care ---
:1940 Author Organization [facility] Address [address] [place] [address] Care Team Providers Name Role Phone Karma Angulo MD Family Preservation Officer David Dubose MD Primary Care Provider Reason for Referral Radiology Services (Routine) Status Reason Specialty Diagnoses / Referred By Referred To Procedures Contact Contact New Request Diagnostic Diagnoses Screening for osteoporosis Edemekong, Radiology Procedures DEXA PERIPHERAL (FOREARM) MD Yony [address] [place] [address] [address] Radiology Services (Routine) Status Reason Specialty Diagnoses / Referred By Referred To Procedures Contact Contact New Request Diagnostic Diagnoses Screening for osteoporosis Edemekong, Radiology Procedures DEXA AXIAL (HIP AND SPINE) MD Yony [address] [place] [address] [place] [phone] (Routine) Status Reason Specialty Diagnoses / Referred By Referred To Procedures Contact Contact New Request Physical Therapy Diagnoses Head and face pain Acute renal failure superimposed on stage 3 chronic kidney disease, unspecified acute renal failure type Other chronic pain Edemekong, Adc Physical Procedures CONSULT/REFERRAL PHYSICAL THERAPY MD Yony Therapy [address] [place] [address] [address] [address] Phone: [place], [place] [phone] Fax: Reason for Visit Reason Comments Follow-up Headache Encounter Details Date Type Department Care Team Description 06/04/2019 Office Visit [facility] Yony Wilhelm, Acute renal failure superimposed on stage 3 chronic kidney disease, unspecified acute renal failure type (Primary Dx); Pediatric and Adult MD Head and face pain; [facility] Stage 3 chronic [facility] disease; [place] [address] Other chronic pain; [address] [place] [address] , [place] [address] Encounter for medication refill; [address] Chronic obstructive pulmonary disease, unspecified COPD type; [place], [place] Primary osteoarthritis of both knees; [id number] Need for Tdap vaccination; [phone] Need for pneumococcal vaccine; Screening for osteoporosis; Type 2 diabetes mellitus without complication, without long-term current use of insulin Allergies Active Allergy Reactions Severity Noted Date Comments Penicillins Anaphylaxis 08/22/2014 documented as of this encounter (statuses as of 06/04/2019) Medications Medication Sig Dispensed Refills Start Date End Date Status carvedilol 6.25 mg Take 1 tablet 60 [...] to 30 days. butalbital-acetamino Take 2 tablets 90 tablet 1 06/04/2019 Active phen-caff 50-325-40 by mouth 2 mg (two) times tabletIndications: daily as Head and face pain needed (severe headaches). butalbital-acetamino Take 2 tablets 10 tablet 0 05/27/2019 Discontinued phen-caff 50-325-40 by mouth 2 9 mg (two) times tabletIndications: daily as Head and face pain needed (severe headaches). documented as of this encounter (statuses as [...] Pneumococcal 13 Conjugate, PCV13 (Prevnar 13) 12/05/2016 Pneumococcal Polysaccharide, PPSV23 (PNEUMOVAX) 06/04/2019 Tdap 06/04/2019 documented as of this encounter Social History [...] Sign Reading Time Taken Comments Blood Pressure 172/88 06/04/2019 9:35 AM CDT Pulse 73 06/04/2019 9:35 AM CDT Temperature 36.6 C (97.9 F) 06/04/2019 9:35 AM CDT Respiratory Rate 20 06/04/2019 9:35 AM CDT Oxygen Saturation 100% 06/04/2019 9:35 AM CDT Inhaled Oxygen Concentration - - Weight 90.6 kg (199 lb 11.2 oz) 06/04/2019 9:35 AM CDT Height - - Body Mass Index 36.53 03/18/2019 11:38 PM CDT documented in this encounter Progress Notes Yony Wilhelm MD - 06/04/2019 9:15 AM CDT CC: SUBSEQUENT ANNUAL WELLNESS VISIT (AWV) HPI Daksha is a 78 year old female is here for her SUBSEQUENT ANNUAL WELLNESS VISIT (AWV). Patient Care Team: David Dubose III, MD as PCP - General (FM-FAMILY MEDICINE) Karma Angulo MD as Family Preservation Officer (IM-INTERNAL MEDICINE) List additional current known providers and DME suppliers: per documentation in patient's profile/chart HISTORY Past Medical History: Diagnosis Date Anemia Anxiety [...] UTI (urinary tract infection) due to Enterococcus Past Surgical History: Procedure Laterality Date ARTHROSCOPIC SHOULDER ROTATOR CUFF REPAIR Left CHOLECYSTECTOMY COLONOSCOPY N/A 11/29/2017 Surgeon: Rebecca Salmeron MD; [facility] ESOPHAGOGASTRODUODENOSCOPY N/A 11/29/2017 Surgeon: Rebecca Salmeron MD; [facility] ESOPHAGOGASTRODUODENOSCOPY N/A 07/04/2018 Surgeon: Rebecca Salmeron MD; Location[facility] ESOPHAGOGASTRODUODENOSCOPY Upper 02/05/2019 Surgeon: Rebecca Salmeron MD; Location: [facility] PHACOEMULSIFICATION OF CATARACT WITH INTRAOCULAR LENS IMPLANT Left 12/06/2017 Surgeon: Marco Schaeffer MD; Location: [facility] OR Location PHACOEMULSIFICATION OF CATARACT WITH INTRAOCULAR LENS IMPLANT Right 2017 Surgeon: Marco Schaeffer MD; Location: [facility] OR Location TOTAL KNEE ARTHROPLASTY Right Family History Problem Relation Age of Onset Diabetes Mother Hypertension Mother Social History Tobacco Use Smoking status: Former Smoker Packs/day: 0.15 Years: 30.00 Pack years: 4.50 Last attempt to quit: 08/22/1994 Years since quittin.8 Smokeless tobacco: Never Used Substance Use Topics Alcohol use: No Social History Substance and Sexual Activity Drug Use No Social History Substance and Sexual Activity Sexual Activity Not on file Allergies Allergen Reactions Penicillins Anaphylaxis Current Outpatient Medications: hoovqwrckf-fcqtmrijkdhtq-ybea 50-325-40 mg tablet, Take 2 tablets by mouth 2 (two) times daily as needed (severe headaches)., Disp: 90 tablet, Rfl: 1 carvedilol 6.25 mg tablet, Take 1 tablet by mouth 2 (two) times daily with meals., Disp: 60 tablet, Rfl: 1 famotidine 40 mg tablet, Take 1 tablet by mouth daily., Disp: 30 tablet, Rfl: 0 gabapentin 300 mg capsule, Take 1 capsule by mouth 2 (two) times daily., Disp: 90 capsule, Rfl:1 hydrALAZINE 100 mg tablet, Take 1 tablet by mouth every 8 (eight) hours., Disp: 270 tablet, Rfl: 3 ipratropium-albuterol 0.5 mg-3 mg(2.5 mg base)/3 mL nebulizer solution, USE ONE AMPULE IN NEBULIZER EVERY 6 HOURS, Disp: 3 Box, Rfl: 3 Magnesium Oxide 420 mg Tab, Take 400 mg by mouth daily., Disp: 30 tablet, Rfl: 0 ondansetron (ZOFRAN) 4 mg tablet, Take 1 tablet by mouth every 8 (eight) hours as needed for Nausea and Vomiting (N/V)., Disp: 12 tablet, Rfl: 0 proMETHazine 25 mg tablet, Take 1 tablet by mouth 3 (three) times daily as needed for Nausea and Vomiting (N/V)., Disp: 30 tablet, Rfl: 0 SERTraline 100 mg tablet, Take 1 tablet by mouth daily., Disp: 30 tablet, Rfl: 1 traMADol 50 mg tablet, Take 1 tablet by mouth every 6 (six) hours as needed (pain)., Disp: 20 tablet, Rfl: 0 zolpidem (AMBIEN) 5 mg tablet, Take 1 tablet by mouth at bedtime as needed for Insomnia for up to 30 days., Disp: 30 tablet, Rfl: 5 No current facility-administered medications for this visit. Facility-Administered Medications Ordered in Other Visits: ipratropium-albuterol (DUONEB) 0.5 mg-3 mg(2.5 mg base)/3 mL nebulizer solution 3 mL, 3 mL, Inhalation, TID, Emilie Mosquera MD, 3 mL at 02/04/19 1417 acetylcholine (MIOCHOL-E) 1 % (10 mg/mL) intraocular injection, , , PRN, Marco Schaeffer MD, 2 mL at 12/06/17 1213 balanced salt soln no.2 irrig. (BSS) ophthalmic solution, , , PRN, Marco Schaeffer MD, 500 mL at 12/06/17 1203 ceFAZolin (ANCEF) 1,000 mg in sterile water for injection 10 mL 1 gram SIVP syringe, , , PRN, Marco Schaeffer MD, 0.02 mg at 12/06/17 1214 dexamethasone (DECADRON) injection, , , PRN, Marco Schaeffer MD, 0.12 mg at 12/06/17 1732 DUOVISC (DUOVISC VISCO ELASTIC) 3 %-4 %(0.5 mL) 1 % (0.55 mL) intraocular injection, , , PRN, Marco Schaeffer MD, 1 Kit at 12/06/17 1203 EPINEPHrine (ADRENALIN) injection, , , PRN, Marco Schaeffer MD, 0.5 mg at 12/06/17 1649 gentamicin injection, , , PRN, Marco Schaeffer MD, 0.8 mg at 12/06/17 1214 dvpkijbm-vsjqctbyi-lgeibgdqbrwde (MAXITROL) 3.5 mg/g-10,000 unit/g-0.1 % ophthalmic ointment, ,, PRN, Marco Schaeffer MD, 0.5 Inch at 12/06/17 1214 water for irrigation irrigation solution, , , PRN, Marco Schaeffer MD, 30 mL at 12/06/17 1200 - Depression and Other Mood Disorder Assessment Is the patient under current treatment for depression or other mood disorder? No PHQ-2: Over the last 2 weeks, how often have you been bothered by any of the following problems? Little interest or pleasure in doing things: 0 Feeling down, depressed, or hopeless: 0 PHQ-2 Score (_/6): 0 - Opioid Risk Assessment Is the patient on chronic opioid pain medication? No Is the patient identified as at risk for opioid use disorder (personal or family history of substance use disorder or personal history of mental illness)? No - Hearing Impairment Assessment: Normal hearing - Activities of Daily Living Assessment: Normal ADL - Home Safety Assessment: Home safe, no hx abuse -Fall Risk Assessment: Not at fall risk per patient and daughter PHYSICAL EXAM BP (!) 172/88 (BP Location: Left arm, Patient Position: Sitting, BP CUFF SIZE: Adult Medium) | Pulse 73 | Temp 36.6 C (97.9 F) (Temporal Artery) | Resp 20 | Wt 199 lb 11.2 oz (90.6 kg) | LMP (LMP Unknown) | SpO2 100% | BMI 36.53 kg/m - Cognitive Screen (Please complete preferred cognitive screen in Flowsheet Activity) Mini Mental State Exam ASSESSMENT/PLAN After review of the HR and assessment above, I have identified the following concerns: None Personalized health counseling provided through patient instructions (Medicare Wellness Health Advice) Health Maintenance Summary Status Date Zoster Recombinant Vaccine (SHINGRIX) Overdue 1988 PNEUMOCOCCAL VACCINES 65+ Postponed 06/04/2019 Originally 12/05/2017. Patient Ill Today Done 12/05/2016 Imm Admin: Pneumococcal 13 Conjugate, PCV13 (Prevnar 13) DTaP,Tdap,and Td Vaccines Postponed 06/04/2019 Originally 1957. Patient Ill Today Osteoporosis Screening Postponed 06/04/2019 Originally 2003. Patient Ill Today Medicare Wellness Visit Postponed 05/29/2020 Originally 2003. Patient Refused INFLUENZA VACCINE Next Due 07/07/2019 Done 10/03/2018 Imm Admin: Influenza High Dose Done 10/26/2016 Imm Admin: Influenza High Dose HgA1C Next Due 11/28/2019 Done 05/28/2019 GLYCOSYLATED HEMOGLOBIN (A1C) HGB A1C Done 03/18/2019 GLYCOSYLATED HEMOGLOBIN (A1C) HGB A1C Patient has more history with this topic... EYE EXAM Next Due 12/06/2019 Done 12/06/2018 Completed at [facility] Opthalmogy per patient URINE MICROALBUMIN Next Due 05/28/2020 Done 05/28/2019 MICROALBUMIN URINE MICROALB U Done 08/28/2015 MICROALBUMIN URINE MICROALB U LDL-C Next Due 05/28/2020 Done 05/28/2019 LIPID PANEL (04183)(TOTAL CHOLESTEROL, TRIGLYCERIDES, HDL) LDL CHOL Done 06/05/2017 LIPID PANEL (56606)(TOTAL CHOLESTEROL, TRIGLYCERIDES, HDL) LDL CHOL Patient has more history with this topic... CREATININE (SERUM) Next Due 05/28/2020 Done 05/28/2019 COMP. METABOLIC PANEL (75907) CREATININE Done 05/01/2019 BASIC METABOLIC PANEL (NA, K, CL, CO2, GLUCOSE, BUN, CREATININE , CA) CREATININE Patient has more history with this topic... FOOT EXAM Next Due 06/04/2020 Done 06/04/2019 Recommended health maintenance schedule: Bone Density Testing Pneumococcal Vaccination Shingles Vaccination Tdap/Td Vaccination Were advanced care planning documents or end of life goals discussed during the visit? Yes. Specify: patient wants to be resuscitated (CPR), with intubation if applicable for less the 30days. Has living will & power of banking attorney (Teresajenn Wesley & Megan Pederson). Follow-up plan is as follows: Consult Manager Welding Referral to community resources for Day Bed Follow-up clinic visit in 3 months Orders Placed This Encounter Procedures DEXA AXIAL (HIP AND SPINE) DEXA PERIPHERAL (FOREARM) PNEUMOCOCCAL 13 (PREVNAR) VACCINE TDAP VACCINE, >11 YRS, IM CONSULT/REFERRAL PHYSICAL THERAPY CONSULT/REFERRAL SOCIAL WORK-AMBULATORY Yony Amaro MD - 06/04/2019 9:15 AM CDT Family Medicine [facility] Follow up visit Visit date: 06/04/2019 Chief complaint: Follow-up and Headache HPI: Daksha Olson is a 78 year old female w/ PMHx below who presented to the clinic for follow-up s/p hypertensive emergency. At this visit, BP is 170/ 88. Patient has hx acute on chronic kidney disease complication her HTN. Per recent labs, MicroAl/Cr is elevated. She has been referred to Nephrology and pending scheduled appointment. Patient also complained c/o chronic headache and finds reliefwith Fioricet. PAST MEDICAL HISTORY: Past Medical History: Diagnosis [...] (urinary tract infection) due to Enterococcus Constitutional: headache controlled by medication Eyes: negative Ears: negative Nose/Sinuses: negative Mouth/Throat: negative Cardiovascular: negative Respiratory: negative Gastrointestinal: negative Genitourinary: negative Musculoskeletal: negative Integumentary: negative Neuro: negative Psych: negative Endocrine: negative Hem/Lymph: negative Allergy/Immunology: Penicillins MEDS: Outpatient Medications Marked as Taking for the 06/04/19 encounter (Office Visit ) with Yony Wilhelm MD Medication Sig Dispense Refill carvedilol 6.25 mg tablet Take 1 tablet [...] tablet 5 PHYSICAL EXAM: Blood pressure (!) 172/88, pulse 73, temperature 36.6 C (97.9 F), temperature source Temporal Artery, resp. rate 20, weight 199 lb 11.2 oz (90.6 kg), SpO2 100 %. Appearance: comfortable, no distress Eye: normal external eye, corneas clear, conjunctiva and sclera normal and pupils equal, round, reactive to light Ear: normal TM's bilaterally, normal auditory canals and external ears non- tender Nose: nares normal, septum midline, mucosa pink and moist with no drainage or sinus tenderness Oropharynx: moist mucus membranes, no erythema or tonsillar enlargement Neck: neck supple with no rigidity; kyphosis uzvz-kdi-edojazn, noted Cardiovascular: regular rate and rhythm, no murmur Respiratory: clear to auscultation and percussion, bilaterally Abdomen: soft, non-tender, non-distended, no liver, spleen or abnormal masses palpated Musculoskeletal: no clubbing, cyanosis or edema, peripheral pulses 2+ in all extremities Neurologic: normal gait and station Psychiatric: alert, oriented, with appropriate affect Skin: skin color, texture and turgor are normal; no bruising, rashes or lesions noted Sensory exam of the foot is normal. Lesions absent Ulcers Absent Peripheral pulses present 2+. LABS: Reviewed and discussed with patient ASSESSMENT/PLAN: Daksha Olson is a 78 year old female seen for: Head and face pain - Improved with Fioricet. - Referral to PT for chronic neck pain - CONSULT/REFERRAL PHYSICAL THERAPY - CONSULT/REFERRAL SOCIAL WORK-AMBULATORY - urtwrhfqeo-kuoxpudviqyln-mrsj 50-325-40 mg tablet; Take 2 tablets by mouth 2 ( two) times daily as needed (severe headaches). Dispense: 90 tablet; Refill: 1 Acute renal failure superimposed on stage 3 chronic kidney disease, unspecified acute renal failure type - Complicated by hx Hypertensive urgency. Current BP 172/88 - insufficient glomerular filtration complicated by hx CKD. - Nephrology referral completed, pending scheduling Hx DM- Type 2 - Abnormal microalbumin, most recent A1c 4.7 - Followed by Endocrinology. Scheduled for appointment on 11/19/2019 Other chronic pain - Complicated by hx chronic arthritic and neuropathy - CONSULT/REFERRAL PHYSICAL THERAPY - CONSULT/REFERRAL SOCIAL WORK-AMBULATORY Health Maintenance - Need for Tdap vaccination: TDAP VACCINE, >11 YRS, IM - Need for pneumococcal vaccine: PNEUMOCOCCAL VACCINE, 23-VALENT (PNEUMOVAX) - Screening for osteoporosis: DEXA AXIAL (HIP AND SPINE); Future/ DEXA PERIPHERAL (FOREARM); Future Patient instructed to call or return to clinic as needed if these symptoms worsen or fail to improveas anticipated. Plan of care discussed with patient and patient verbalized understanding. Side effects of medicationprescribed discussed and patient instructed to call clinic back if any should occur Preventive Care: Medication reconciliation, patient education and anticipatory guidance completed. All questions and concerns addressed. >50% of visit was for counseling and coordination of care with patient as documented under plans above. Total visit time 15 Minutes. Follow-up: 3 months, PRN with concerns Future Appointments Provider Department Dept Phone Center 08/27/2019 2:30 PM Layla Woods MBBS [facility] [phone] [facility] 11/19/2019 9:[address] [facility] [phone] [place] End documented in this encounter Plan of Treatment Date Type Specialty Care Team Description 08/27/2019 Office Visit Nephrology Layla Woods MBBS [id number] [place] [address] [phone] 09/04/2019 Office Visit Family Medicine Yony Wilhelm MD [address] [place] [address] [place] [address] [phone] 11/19/2019 Digital Performance Analyst Visit Endocrinology Diabetes & Payal Sorto RD Metabolism [address] [place] [address] [phone] Name Type Priority Associated Diagnoses Order Schedule DEXA AXIAL (HIP AND IMAGING Routine Screening for Expected: SPINE) osteoporosis 06/04/2019, Expires: 06/04/2020 DEXA PERIPHERAL IMAGING Routine Screening for Expected: (FOREARM) osteoporosis 06/04/2019, Expires: 06/04/2020 Health Maintenance Due Date Last Done Comments Zoster Recombinant Vaccine 1988 (SHINGRIX) (1 of 2) DTaP,Tdap,and Td Vaccines 06/04/2019 Postponed from (1 - Tdap) 1957 (Patient Ill Today) Osteoporosis Screening 06/04/2019 Postponed from 2003 (Patient Ill Today) INFLUENZA VACCINE 07/07/2019 10/03/2018, 10/26/2016 HgA1C 11/28/2019 05/28/2019, 03/18/2019, 05/01/2018, Additional history exists EYE EXAM 12/06/2019 12/06/2018 CREATININE (SERUM) 05/28/2020 05/28/2019, 05/01/2019, 04/29/2019, Additional history exists LDL-C 05/28/2020 05/28/2019, 06/05/2017, 08/28/2015, Additional history exists URINE MICROALBUMIN 05/28/2020 05/28/2019, 08/28/2015 Medicare Wellness Visit 05/29/2020 Postponed from 2003 (Patient Refused) FOOT EXAM 06/04/2020 06/04/2019 PNEUMOCOCCAL VACCINES 65+ 06/04/2024 12/05/2016 (2 of 2 - PPSV23) documented as of this encounter Implants Implanted Type Area President Device Shelf Model / Identifier Expiration Date Serial / Lot Iol LENS Right: Jamil 11/05/2021 [id number] / Implanted: Qty: 1 on 12/06/2017 by Marco Schaeffer MD at [facility] [id number] / [id number] Acrysofiq LENS Right: Jamil 01/03/2022 [id number] / Implanted: Qty: 1 on 12/20/2017 by Marco Schaeffer MD at [facility] [id number] / [id number] documented as of this encounter Procedures Procedure Name Priority Date/Time Associated Diagnosis Comments PNEUMOCOCCAL VACCINE, Routine 06/04/2019 11:17 AM Need for pneumococcal 23-VALENT (PNEUMOVAX) CDT vaccine TDAP VACCINE, >11 YRS, Routine 06/04/2019 10:37 AM Need for Tdap IM CDT vaccination documented in this encounter Results Not on filedocumented in this encounter Visit Diagnoses Diagnosis Acute renal failure superimposed on stage 3 chronic kidney disease, unspecified acute renal failure type - Primary Head and face pain Headache Stage 3 chronic kidney disease Other chronic pain Encounter for medication refill Issue of repeat prescriptions Chronic obstructive pulmonary disease, unspecified COPD type Primary osteoarthritis of both knees Primary localized osteoarthrosis, lower leg Need for Tdap vaccination Need for prophylactic vaccination with combined vyecdjpecc-gxbjmga-xsadklmyn ( DTP) vaccine Need for pneumococcal vaccine Need for prophylactic vaccination against streptococcus pneumoniae ( pneumococcus) Screening for osteoporosis Special screening for osteoporosis Type 2 diabetes mellitus without complication, without long-term current use of insulin documented in this encounter Insurance Payer Benefit Plan / Subscriber ID Effective Dates Phone Address Type Group MEDICARE MEDICARE PART xxxxxxxxxxx 1993-Rowena [phone] Medicare A & B t [address] [id number] [place] [id number] documented as of this encounter"
--- OUTSIDE RECORDS SUMMARY | 2019-10-17 11:21 | XMS REPORT | Summary of Care ---
:1940 Author Organization [facility] Address [address] [place] [address] Care Team Providers Name Role Phone Karma Angulo MD Heel Blacker David Dubose MD Primary Care Provider Reason for Visit Reason Comments Lab Results Encounter Details Date Type Department Care Team Description 05/31/2019 Telephone [facility] Pediatric and Yony Wilhelm MD Lab Results Adult Primary Care- [address] [place] [address] Dr Chawla [facility] [address] [place] [address] , [place] [address] [address] [place] [address] [phone] Allergies Active Allergy Reactions Severity Noted Date Comments Penicillins Anaphylaxis 08/22/2014 documented as of this encounter (statuses as of 06/04/2019) Medications Medication Sig Dispensed Refills Start Date End Date Status carvedilol 6.25 mg Take 1 tablet by [...] Description 08/27/2019 Office Visit Nephrology Layla Woods, ANA [address] [place] [address] [phone] 09/04/2019 Office Visit Family Medicine Yony Wilhelm MD [address] [place] [address] [place] [address] [phone] 11/19/2019 Physician Executive Visit Endocrinology Diabetes & Macario, Payal, RD Metabolism [address] [place] [address] [phone] Health Maintenance Due Date Last Done Comments [...] of this encounter Implants Implanted Type Area Network Firewall Engineer Device Shelf Model / Identifier Expiration Date Serial / Lot Iol LENS Right: Jamil 11/05/2021 [id number] / Implanted: Qty: 1 on 12/06/2017 by Marco Schaeffer MD at [facility] [id number] / [id number] Acrysofiq LENS Right: Jamil 01/03/2022 [id number] / Implanted: Qty: 1 on 12/20/2017 by Marco Schaeffer MD at [facility] [id number] / [id number] documented as of this encounter Results Not on filedocumented in this encounter Insurance Payer Benefit Plan / Subscriber ID Effective Dates Phone Address Type Group MEDICARE MEDICARE PART xxxxxxxxxxx 1991-Rowena [phone] Medicare A & B t 2 [id number] [place] [id number] documented as of this encounter
--- OUTSIDE RECORDS SUMMARY | 2019-10-17 11:21 | XMS REPORT | Summary of Care ---
:1940 Author Organization [facility] Address [address] [place] [address] Care Team Providers Name Role Phone Karma Angulo MD Operations Controller David Dubose MD Primary Care Provider Reason for Referral Radiology Services (Routine) Status Reason Specialty Diagnoses / Referred By Referred To Procedures Contact Contact New Request Diagnostic Diagnoses Screening for osteoporosis Edemekong, Radiology Procedures DEXA PERIPHERAL (FOREARM) MD Yony [address] [place] [address] [address] Radiology Services (Routine) Status Reason Specialty Diagnoses / Referred By Referred To Procedures Contact Contact New Request Diagnostic Diagnoses Screening for osteoporosis Edem[place]ong, Radiology Procedures DEXA AXIAL (HIP AND SPINE) MD Yony [address] [place] [address] [place] [phone] (Routine) Status Reason Specialty Diagnoses / Referred By Referred To Procedures Contact Contact New Request Physical Therapy Diagnoses Head and face pain Acute renal failure superimposed on stage 3 chronic kidney disease, unspecified acute renal failure type Other chronic pain Edemekong, Adc Physical Procedures CONSULT/REFERRAL PHYSICAL THERAPY MD Yony Therapy [address] [place] [address] [address] [address] Phone: [place], [place] [phone] Fax: Reason for Visit Reason Comments Follow-up Headache Encounter Details Date Type Department Care Team Description 06/04/2019 Office Visit [facility] Yony Wilhelm, Acute renal failure superimposed on stage 3 chronic kidney disease, unspecified acute renal failure type (Primary Dx); Pediatric and Adult MD Head and face pain; [facility] Stage 3 chronic kidney disease; [place] [address] Other chronic pain; [address] [place] [address] , [place] [address] Encounter for medication refill; [address] Chronic obstructive pulmonary disease, unspecified COPD type; [place], [place] Primary osteoarthritis of both knees; [phone] Need for Tdap vaccination; [phone] Need for pneumococcal vaccine; Screening for osteoporosis; [...] General (FM-FAMILY MEDICINE) Karma Angulo MD as Operations Controller (IM-INTERNAL MEDICINE) List additional current known providers [...] Left 12/06/2017 Surgeon: Marco Schaeffer MD; Location: [facility] OR Location PHACOEMULSIFICATION OF CATARACT WITH INTRAOCULAR LENS IMPLANT Right 2017 Surgeon: Marco Schaeffer MD; Location: [facility] OR Location TOTAL KNEE ARTHROPLASTY Right Family [...] Allergen Reactions Penicillins Anaphylaxis Current Outpatient Medications: lvidveluwd-eksmofiuhyucm-qlwb 50-325-40 mg tablet, Take 2 tablets by [...] Schaeffer MD, 0.8 mg at 12/06/17 1214 dhurzfkr-ghyauojtw-hwxchpqgiyyjp (MAXITROL) 3.5 mg/g-10,000 unit/g-0.1 % ophthalmic ointment, [...] Next Due 12/06/2019 Done 12/06/2018 Completed at [facility] Opthalmogy per patient URINE MICROALBUMIN Next Due 05/28/2020 Done 05/28/2019 MICROALBUMIN URINE MICROALB U Done 08/28/2015 MICROALBUMIN URINE MICROALB U LDL-C Next Due 05/28/2020 Done 05/28/2019 LIPID PANEL (45536)(TOTAL CHOLESTEROL, TRIGLYCERIDES, HDL) LDL CHOL Done 06/05/2017 LIPID PANEL (53542)(TOTAL CHOLESTEROL, TRIGLYCERIDES, HDL) LDL CHOL Patient has more history with this topic... CREATININE (SERUM) Next Due 05/28/2020 Done 05/28/2019 COMP. METABOLIC PANEL (84824) CREATININE Done 05/01/2019 BASIC METABOLIC PANEL (NA, [...] 30days. Has living will & power of real estate associate attorney (Teresajenn Wesley & Megan Pederson). Follow-up plan is as follows: Consult Communications And Signals Supervisor Referral to community resources for Day Bed [...] Neck: neck supple with no rigidity; kyphosis gvgk-kcb-lnhabnm, noted Cardiovascular: regular rate and rhythm, no [...] PHYSICAL THERAPY - CONSULT/REFERRAL SOCIAL WORK-AMBULATORY - lvjwdbwciz-pewhwluchqubh-jsxm 50-325-40 mg tablet; Take 2 tablets by [...] Center 08/27/2019 2:30 PM Layla Woods MBBS [facility] [phone] [facility] 11/19/2019 9:[address] [facility] [phone] [place] documented in this encounter Plan of Treatment Date Type Specialty Care Team Description 08/27/2019 Office Visit Nephrology Layla Woods MBBS [address] [place] [address] [phone] 09/04/2019 Office Visit Family Medicine Yony Wilhelm MD [address] [place] [address] [place] [address] [phone] 11/19/2019 Collector Of Port Visit Endocrinology Diabetes & Payal Sorto RD Metabolism [address] [place] [address] [phone] Name Type Priority Associated Diagnoses Order Schedule [...] of this encounter Implants Implanted Type Area Color Paste Mixer Device Shelf Model / Identifier Expiration Date Serial / Lot Iol LENS Right: Jamil 11/05/2021 [id number] / Implanted: Qty: 1 on 12/06/2017 by Marco Schaeffer MD at [facility] Eye [id number] / [id number] Acrysofiq LENS Right: Jamil 01/03/2022 [id number] / Implanted: Qty: 1 on 12/20/2017 by Marco Schaeffer MD at [facility] Eye [id number] / [id number] documented as of this encounter Procedures [...] vaccination Need for prophylactic vaccination with combined dmlprhxwao-xxulhsu-wvpwivvxx ( DTP) vaccine Need for pneumococcal vaccine [...] BOX Medicare A & B t 2 [id number] [place] [id number] documented as of this encounter"
--- OUTSIDE RECORDS SUMMARY | 2019-10-17 11:22 | XMS REPORT | Summary of Care ---
:1940 Author Organization [facility] - [facility] Address [address] [place] [address] Care Team Providers Name Role Phone Karma Angulo MD Medical I D Sales David Dubose MD Primary Care Provider Encounter Details Date Type Department Care Team Description 06/11/2019 Orders Only [facility] Doctor Unassigned, No 301 [facility] Name [place] [phone] Allergies Active Allergy Reactions Severity Noted Date Comments Penicillins Anaphylaxis 08/22/2014 documented as of this encounter (statuses as of 06/11/2019) Medications Medication Sig Dispensed Refills Start Date [...] for Insomnia for up to 30 days. butalbital-acetaminop Take 2 tablets 90 tablet 1 06/04/2019 Active hen-caff 50-325-40 mg by mouth 2 (two) tabletIndications: times daily as Head and face pain needed (severe headaches). documented as of this encounter (statuses as of 06/11/2019) Active Problems Problem Noted Date Acute renal [...] as of this encounter (statuses as of 06/11/2019) Resolved Problems Problem Noted Date Resolved Date [...] as of this encounter (statuses as of 06/11/2019) Immunizations Name Administration Dates Next Due Influenza [...] Treatment Date Type Specialty Care Team Description 06/11/2019 Appointment Radiology Yony Wilhelm MD [address] [place] [address] [place] [address] [phone] 06/11/2019 Appointment Radiology Yony Wilhelm MD [address] [place] [address] [place] [address] [phone] 08/27/2019 Office Visit Nephrology Layla Woods, LANABS [address] [place], [place] [address] 09/04/2019 Office Visit Family Medicine Yony Wilhelm MD [address] [place] [address] [place] [address] [phone] 11/19/2019 Human Service Technician Visit Endocrinology Diabetes & MacarioPayal, RD Metabolism [address] [place], [place] 357803 Health Maintenance Due Date Last Done Comments Zoster Recombinant Vaccine 1988 (SHINGRIX) (1 of 2) Osteoporosis Screening 2003 INFLUENZA VACCINE 07/07/2019 10/03/2018, 10/26/2016 HgA1C 11/28/2019 05/28/2019, 03/18/2019, 05/01/2018, Additional history exists EYE EXAM 12/06/2019 12/06/2018 CREATININE (SERUM) 05/28/2020 05/28/2019, 05/01/2019, 04/29/2019, Additional history exists LDL-C 05/28/2020 05/28/2019, 06/05/2017, 08/28/2015, Additional history exists URINE MICROALBUMIN 05/28/2020 05/28/2019, 08/28/2015 FOOT EXAM 06/04/2020 06/04/2019, 06/04/2019, 06/04/2019 Medicare Wellness Visit 06/04/2020 06/04/2019 DTaP,Tdap,and Td Vaccines (2 - Td) 06/04/2029 06/04/2019 PNEUMOCOCCAL VACCINES 65+ Completed 06/04/2019, 12/05/2016 documented as of this encounter Implants Implanted Type Area Biological Engineer Device Shelf Model / Identifier Expiration Date Serial / Lot Iol LENS Right: Jamil 11/05/2021 [id number] / Implanted: Qty: 1 on 12/06/2017 by Marco Schaeffer MD at [facility] Eye [id number] / [id number] Acrysofiq LENS Right: Jamil 01/03/2022 [id number] / Implanted: Qty: 1 on 12/20/2017 by Marco Schaeffer MD at [facility] Eye [id number] / [id number] documented as of this encounter Procedures Procedure Name Priority Date/Time Associated Diagnosis Comments ASSIGNMENT OF BENEFITS Routine 06/11/2019 8:37 AM CDT documented in this encounter Results Not on filedocumented in this encounter Insurance Payer Benefit Plan / Subscriber ID Effective Dates Phone Address Type Group MEDICARE MEDICARE PART xxxxxxxxxxx 1993-Rowena [phone] [address] Medicare A & B t 2 [id number] [place] [phone] documented as of this encounter
--- OUTSIDE RECORDS SUMMARY | 2019-10-17 11:22 | XMS REPORT | Summary of Care ---
:1940 Author Organization [facility] [[email or web address] - [facility] Address [address] [place] [address] Care Team Providers Name Role Phone Karma Angulo MD [place] Paver David Dubose MD Primary Care Provider Encounter Details Date Type Department Care Team Description 06/05/2019 Abstract [facility] Pediatric and Yony Wilheml MD Adult Primary Care- [address] [place] [address] , [facility] [address] [place] [address] [place] [phone] Allergies Active Allergy Reactions Severity Noted Date Comments Penicillins Anaphylaxis 08/22/2014 documented as of this encounter (statuses as of 06/05/2019) Medications Medication Sig Dispensed Refills Start Date [...] as of this encounter (statuses as of 06/05/2019) Active Problems Problem Noted Date Acute renal [...] as of this encounter (statuses as of 06/05/2019) Resolved Problems Problem Noted Date Resolved Date [...] as of this encounter (statuses as of 06/05/2019) Immunizations Name Administration Dates Next Due Influenza [...] Nephrology Layla Woods, ANA [address] [place] [address] [phone] 09/04/2019 Office Visit Family Medicine Yony Wilhelm MD [address] [place] [address] [place] [address] [phone] 11/19/2019 Senior Contracts Administrator Visit Endocrinology Diabetes & MacarioPayal, RD Metabolism [address] [place], [place] [address] Health Maintenance Due Date Last Done Comments [...] of this encounter Implants Implanted Type Area Film Process Operator Device Shelf Model / Identifier Expiration Date Serial / Lot Iol LENS Right: Jamil 11/05/2021 [id number] / Implanted: Qty: 1 on 12/06/2017 by Marco Schaeffer MD at [facility] Eye [id number] / [id number] Acrysofiq LENS Right: Jamil 01/03/2022 [id number] / Implanted: Qty: 1 on 12/20/2017 by Marco Schaeffer MD at [facility] Eye [id number] / [id number] documented as of this encounter Results Not on filedocumented in this encounter Insurance Payer Benefit Plan / Subscriber ID Effective Dates Phone Address Type Group MEDICARE MEDICARE PART xxxxxxxxxxx 1991-Rowena [phone] [address] [facility] Medicare A & B t 2 [id number] [place] [phone] documented as of this encounter
--- OUTSIDE RECORDS SUMMARY | 2019-10-17 11:22 | XMS REPORT | Summary of Care ---
:1940 Author Organization [facility] Address [address] [place] [address] Care Team Providers Name Role Phone Karma Angulo MD Capacitor Pack Press Operator David Dubose MD Primary Care Provider Reason for Referral Radiology Services (Routine) Status Reason Specialty Diagnoses / Referred By Referred To Procedures Contact Contact Closed Diagnostic Diagnoses Age-related osteoporosis without current pathological fracture M81.0 (ICD-10-CM) - Age-related osteoporosis without current pathological fracture Edemekong, Radiology Procedures DEXA AXIAL (HIP AND SPINE) CHG DEXA,BONE DENSITY, 1 + SITE, AXIAL SKELETON [id number] - DEXA AXIAL (HIP AND SPINE) 62133 - CHG DEXA,BONE DENSITY, 1 + SITE, AXIAL SKELETON MD Yony [address] [place] [address] [address] Radiology Services (Routine) Status Reason Specialty Diagnoses / Referred By Referred To Procedures Contact Contact Closed Diagnostic Diagnoses Age-related osteoporosis without current pathological fracture M81.0 (ICD-10-CM) - Age-related osteoporosis without current pathological fracture Edemekong, Radiology Procedures DEXA AXIAL (HIP AND SPINE) CHG DEXA,BONE DENSITY, 1 + SITE, AXIAL SKELETON [id number] - DEXA AXIAL (HIP AND SPINE) 62002 - CHG DEXA,BONE DENSITY, 1 + SITE, AXIAL SKELETON MD Yony [address] [place] [address] [place] [address] Reason for Visit Radiology Services (Routine) Status Reason Specialty Diagnoses / Referred By Referred To Procedures Contact Contact Closed Diagnostic Diagnoses Age-related osteoporosis without current pathological fracture M81.0 (ICD-10-CM) - Age-related osteoporosis without current pathological fracture Edemekong, Radiology Procedures DEXA AXIAL (HIP AND SPINE) CHG DEXA,BONE DENSITY, 1 + SITE, AXIAL SKELETON [id number] - DEXA AXIAL (HIP AND SPINE) 46529 - CHG DEXA,BONE DENSITY, 1 + SITE, AXIAL SKELETON MD Yony [address] [place] [address] Dr Schulte [address] [place] [address] Encounter Details Date Type Department Care Team Description 06/11/2019 Hospital Encounter [facility] Yony Wilhelm MD [facility] Breast Imaging [address] [place] [address] Dr Schulte [address] [place] [address] [place] [address] [phone] Allergies Active Allergy Reactions Severity Noted Date Comments Penicillins Anaphylaxis 08/22/2014 documented as of this encounter (statuses as of 06/12/2019) Medications Medication Sig Dispensed Refills Start Date [...] as of this encounter (statuses as of 06/12/2019) Active Problems Problem Noted Date Acute renal [...] as of this encounter (statuses as of 06/12/2019) Resolved Problems Problem Noted Date Resolved Date [...] as of this encounter (statuses as of 06/12/2019) Immunizations Name Administration Dates Next Due Influenza [...] Nephrology Layla Woods, ANA [address] [place] [address] [phone] 09/04/2019 Office Visit Family Medicine Yony Wilhelm MD [address] [place] [address] [place] [address] [phone] 11/19/2019 Pie Dough Roller Visit Endocrinology Diabetes & Macario, Payal, RD Metabolism [address] [place] [address] [phone] Health Maintenance Due Date Last Done Comments [...] of this encounter Implants Implanted Type Area Detailer School Photographs Device Shelf Model / Identifier Expiration Date Serial / Lot Iol LENS Right: Jamil 11/05/2021 [id number] / Implanted: Qty: 1 on 12/06/2017 by Marco Schaeffer MD at [facility] Eye [id number] / [id number] Acrysofiq LENS Right: Jamil 01/03/2022 [id number] / Implanted: Qty: 1 on 12/20/2017 by Marco Schaeffer MD at [facility] Eye [id number] / [id number] documented as of this encounter Procedures Procedure Name Priority Date/Time Associated Diagnosis Comments DEXA AXIAL (HIP AND Routine 06/11/2019 9:15 Age-related Results for this SPINE) AM CDT osteoporosis without procedure are in current pathological the results fracture section. documented in this encounter Results DEXA AXIAL (HIP AND SPINE) (06/11/2019 9:15 AM CDT) Specimen Impressions Performed At 1. Osteoporosis of the right hip and left forearm with high risk for PACS/VR/DOSE fractures Narrative Performed At * * * * * * * * ORIGINAL REPORT * * * * * * * * PACS/VR/DOSE EXAM: Dual-energy X-ray absorptiometry. HISTORY: Screening Osteoporosis COMPARISON: None. TECHNIQUE and FINDINGS: Bone densitometry of the lumbar spine, right hip and left forearm was performed. WHO-definitions: T-score normal: +/- 1 SD around the mean osteopenia: >1 to 2.4 SD below the mean osteoporosis: >2.5 SD below the mean Fracture risk doubles for each 1.5 SD below the mean. FINDINGS: 1. Lumbar Spine L1-L4: The calculated total T-score is-0.4, and the Z-score is -0.1, which is normal. The total bone mineral density is calculated at 1.141 g/cm2. This puts the patient at no increased risk for compression fractures. 2. Right Hip: The calculated T-score at the femoral neck is -2.7, and the Z-score is -2.0, osteoporosis. The calculated total T-score is -3.1, and the Z-score is -2.6, which is osteoporosis. The total bone mineral density is calculated at 0.617 g/cm2. There is high risk for femoral neck fractures. 3. Left Radius: The calculated T-score at the distal 33% of the right radius is -3.4, and the Z-score-1.4, which is osteoporosis. The bone mineral density is calculated at 0.576 g/cm2. Procedure Note [facility], Radiant Results Inft User - 06/11/2019 9:28 AM CDT * * * * * * * * ORIGINAL REPORT * * * * * * * * EXAM: Dual-energy X-ray absorptiometry. HISTORY: Screening Osteoporosis COMPARISON: None. TECHNIQUE and FINDINGS: Bone densitometry of the lumbar spine, right hip and left forearm was performed. WHO-definitions: T-score normal: +/- 1 SD around the mean osteopenia: >1 to 2.4 SD below the mean osteoporosis: >2.5 SD below the mean Fracture risk doubles for each 1.5 SD below the mean. FINDINGS: 1. Lumbar Spine L1-L4: The calculated total T-score is -0.4, and the Z-score is -0.1, which is normal. The total bone mineral density is calculated at 1.141 g/cm2. This puts the patient at no increased risk for compression fractures. 2. Right Hip: The calculated T-score at the femoral neck is -2.7, and the Z-score is -2.0, osteoporosis. The calculated total T-score is -3.1, and the Z-score is -2.6, which is osteoporosis. The total bone mineral density is calculated at 0.617 g/cm2. There is high risk for femoral neck fractures. 3. Left Radius: The calculated T-score at the distal 33% of the right radius is -3.4, and the Z-score -1.4, which is osteoporosis. The bone mineral density is calculated at 0.576 g/cm2. IMPRESSION 1. Osteoporosis of the right hip and left forearm with high risk for fractures Performing Organization Address City/State/Zipcode Phone Number PACS/VR/DOSE documented in this encounter Visit Diagnoses Diagnosis Age-related osteoporosis without current pathological fracture Senile osteoporosis documented in this encounter Insurance Payer Benefit Plan / Subscriber ID Effective Dates Phone Address Type Group MEDICARE MEDICARE PART xxxxxxxxxxx 1993-Rowena [phone] [address] Medicare A & B t 2 [id number] [place] [phone] documented as of this encounter
--- OUTSIDE RECORDS SUMMARY | 2019-10-17 11:22 | XMS REPORT | Summary of Care ---
:1940 Author Organization [facility] - [facility] Address [address] [place] [address] Care Team Providers Name Role Phone Karma Angulo MD Sledger David Dubose MD Primary Care Provider Encounter Details Date Type Department Care Team Description 06/05/2019 Abstract [facility] Pediatric and Yony Wilhelm MD Adult Primary Care- [address] [place] [address] , [facility] [address] [place] [address] [place] [phone] Allergies Active Allergy Reactions Severity Noted Date [...] Nephrology Layla Woods, ANA [address] [place] [address] [phone] 09/04/2019 Office Visit Family Medicine Yony Wilhelm MD [address] [place] [address] [place] [address] [phone] 11/19/2019 Lodging Manager Visit Endocrinology Diabetes & MacarioPayal, RD Metabolism [address] [place], [place] [address] Health Maintenance Due Date Last Done Comments [...] of this encounter Implants Implanted Type Area Acute Care Occupational Therapist Device Shelf Model / Identifier Expiration Date Serial / Lot Iol LENS Right: Jamil 11/05/2021 [id number] / Implanted: Qty: 1 on 12/06/2017 by Marco Schaeffer MD at [facility] Eye [id number] / [id number] Acrysofiq LENS Right: Jamil 01/03/2022 [id number] / Implanted: Qty: 1 on 12/20/2017 by Marco Schaeffer MD at [facility] Eye [id number] / [id number] documented as of this encounter Results Not on filedocumented in this encounter Insurance Payer Benefit Plan / Subscriber ID Effective Dates Phone Address Type Group MEDICARE MEDICARE PART xxxxxxxxxxx 1991-Rowena [phone] [address] [facility] Medicare A & B t 2 [id number] [place] [id number] documented as of this encounter
--- OUTSIDE RECORDS SUMMARY | 2019-10-17 11:22 | XMS REPORT | Summary of Care ---
:1940 Author Organization [facility] Address [address] [place] [address] Care Team Providers Name Role Phone Karma Angulo MD Glove Stitcher David Dubose MD Primary Care Provider Reason for Referral Radiology Services (Routine) Status Reason Specialty Diagnoses / Referred By Referred To Procedures Contact Contact New Request Diagnostic Diagnoses Age-related osteoporosis without current pathological fracture Edemekong, Radiology Procedures DEXA PERIPHERAL (FOREARM) MD Yony [address] [place] [address] Dr Schulte [address] [place], [place] [address] Radiology Services (Routine) Status Reason Specialty Diagnoses / Referred By Referred To Procedures Contact Contact New Request Diagnostic Diagnoses Age-related osteoporosis without current pathological fracture Edemekong, Radiology Procedures DEXA AXIAL (HIP AND SPINE) MD Yony [address] [place] [address] Dr Schulte [address] [place], [place] [address] (Routine) Status Reason Specialty Diagnoses / Referred By Referred To Procedures Contact Contact New Request Physical Therapy Diagnoses Head and face pain Acute renal failure superimposed on stage 3 chronic kidney disease, unspecified acute renal failure type Other chronic pain Edemekong, Adc Physical Procedures CONSULT/REFERRAL PHYSICAL THERAPY MD Yony [address] Garcia [address] [address] [address] Phone: [place], [place] [phone] [address] Fax: Reason for Visit Reason Comments Follow-up Headache Encounter Details Date Type Department Care Team Description 06/04/2019 Office Visit [facility] Yony Wilhelm, Acute renal failure superimposed on stage 3 chronic kidney disease, unspecified acute renal failure type (Primary Dx); Pediatric and Adult MD Head and face pain; Primary Care- [facility] Stage 3 chronic kidney disease; [place] [address] Other chronic pain; [facility] , [place] [address] Encounter for medication refill; [address] Chronic obstructive pulmonary disease, unspecified COPD type; [place] Primary osteoarthritis of both knees; [phone] Need for Tdap vaccination; [phone] Need for pneumococcal vaccine; Screening for osteoporosis; Type 2 diabetes mellitus without complication, without long-term current use of insulin; Age-related osteoporosis without current pathological fracture Allergies Active Allergy Reactions Severity Noted Date [...] General (FM-FAMILY MEDICINE) Karma Angulo MD as Glove Stitcher (IM-INTERNAL MEDICINE) List additional current known providers [...] N/A 11/29/2017 Surgeon: Rebecca Salmeron MD; Location: [facility] OR Location ESOPHAGOGASTRODUODENOSCOPY N/A 11/29/2017 Surgeon: Rebecca Salmeron MD; Location: [facility] ESOPHAGOGASTRODUODENOSCOPY N/A 07/04/2018 Surgeon: Rebecca Salmeron MD; Location: [facility] OR Location ESOPHAGOGASTRODUODENOSCOPY Upper 02/05/2019 Surgeon: Rebecca Salmeron MD; Location: [facility] OR Location PHACOEMULSIFICATION OF CATARACT WITH INTRAOCULAR LENS IMPLANT Left 12/06/2017 Surgeon: Marco Schaeffer MD; Location: [facility] OR Location PHACOEMULSIFICATION OF CATARACT WITH INTRAOCULAR LENS IMPLANT Right 2017 Surgeon: Marco Schaeffer MD; Location: [facility] OR Location TOTAL KNEE ARTHROPLASTY Right Family [...] Allergen Reactions Penicillins Anaphylaxis Current Outpatient Medications: swhljujfti-pidagpjmmjugk-ijcc 50-325-40 mg tablet, Take 2 tablets by [...] Schaeffer MD, 0.8 mg at 12/06/17 1214 xdatvwcn-uhjendnsg-xikzrqvhjsbrr (MAXITROL) 3.5 mg/g-10,000 unit/g-0.1 % ophthalmic ointment, [...] Next Due 12/06/2019 Done 12/06/[address] [facility] Opthalmogy per patient URINE MICROALBUMIN Next Due 05/28/2020 Done 05/28/2019 MICROALBUMIN URINE MICROALB U Done 08/28/2015 MICROALBUMIN URINE MICROALB U LDL-C Next Due 05/28/2020 Done 05/28/2019 LIPID PANEL (62271)(TOTAL CHOLESTEROL, TRIGLYCERIDES, HDL) LDL CHOL Done 06/05/2017 LIPID PANEL (45692)(TOTAL CHOLESTEROL, TRIGLYCERIDES, HDL) LDL CHOL Patient has more history with this topic... CREATININE (SERUM) Next Due 05/28/2020 Done 05/28/2019 COMP. METABOLIC PANEL (05914) CREATININE Done 05/01/2019 BASIC METABOLIC PANEL (NA, [...] 30days. Has living will & power of estate attorney (Teresajenn Olson & Megan [place]). Follow-up plan is as follows: Consult Slot Technician Referral to community resources for Day Bed [...] Neck: neck supple with no rigidity; kyphosis rrch-uuy-ttwvphl, noted Cardiovascular: regular rate and rhythm, no [...] PHYSICAL THERAPY - CONSULT/REFERRAL SOCIAL WORK-AMBULATORY - albcucpwaa-rybowemoegbqx-jxkg 50-325-40 mg tablet; Take 2 tablets by [...] Center 08/27/2019 2:30 [address] [facility] [phone] LC Multi 11/19/2019 9:[address] [facility] [phone] [place] documented in this encounter Plan of Treatment Date Type Specialty Care Team Description 08/27/2019 Office Visit Nephrology Layla Woods MBBS [address] [place] [address] [phone] 09/04/2019 Office Visit Family Medicine Yony Wilhelm MD [address] [place] [address] [place] [address] [phone] 11/19/2019 Manufacturing Test Technician Visit Endocrinology Diabetes & Payal Sorto RD Metabolism [address] [place] [address] [phone] Name Type Priority Associated Diagnoses Order Schedule DEXA AXIAL (HIP AND IMAGING Routine Age-related osteoporosis Expected: SPINE) without current 06/04/2019, Expires: pathological fracture 06/04/2020 DEXA PERIPHERAL IMAGING Routine Age-related osteoporosis Expected: (FOREARM) without current 06/04/2019, Expires: pathological fracture 06/04/2020 Health Maintenance Due Date Last Done [...] of this encounter Implants Implanted Type Area Tower Hoist Operator Device Shelf Model / Identifier Expiration Date Serial / Lot Iol LENS Right: Jamil 11/05/2021 [id number] / Implanted: Qty: 1 on 12/06/2017 by Marco Schaeffer MD at [facility] [id number] / [id number] Acrysofiq LENS Right: Jamil 01/03/2022 [id number] / Implanted: Qty: 1 on 12/20/2017 by Marco Schaeffer MD at [facility] [id number] / [id number] documented as of this encounter Procedures [...] vaccination Need for prophylactic vaccination with combined cawocgylxj-gombudh-dwreotvsl ( DTP) vaccine Need for pneumococcal vaccine Need for prophylactic vaccination against streptococcus pneumoniae ( pneumococcus) Screening for osteoporosis Special screening for osteoporosis Type 2 diabetes mellitus without complication, without long-term current use of insulin Age-related osteoporosis without current pathological fracture Senile osteoporosis documented in this encounter Insurance Payer Benefit Plan / Subscriber ID Effective Dates Phone Address Type Group MEDICARE MEDICARE PART xxxxxxxxxxx 1993-Rowena [phone] [address] Medicare A & B t 2 [id number] [place] [id number] documented as of this encounter"
--- OUTSIDE RECORDS SUMMARY | 2019-10-17 11:23 | XMS REPORT | Summary of Care ---
:1940 Author Organization [facility] Address [address] [place] [address] Care Team Providers Name Role Phone Karma Angulo MD Clerk Of [address] David Dubose MD Primary Care Provider Reason for Visit Reason Comments Refill Request Encounter Details Date Type Department Care Team Description 06/24/2019 Refill [facility] Pediatric and David Dubose III, MD Refill Request Adult Primary Care- [address] [place] [address] Dr. Chawla [address] , [place] [address] [facility] [phone] [place] [address] [phone] Allergies Active Allergy Reactions Severity Noted Date Comments Penicillins Anaphylaxis 08/22/2014 documented as of this encounter (statuses as of 06/25/2019) Medications Medication Sig Dispensed Refills Start Date End Date Status carvedilol 6.25 mg Take 1 tablet 60 tablet 1 05/27/2019 Active tabletIndications: by mouth 2 Essential (two) times hypertension daily with meals. gabapentin 300 mg Take 1 capsule 90 [...] Head and face pain needed (severe headaches). famotidine 40 mg Take 1 tablet 90 tablet 1 06/25/2019 Active tabletIndications: by mouth Abdominal pain, daily. unspecified abdominal location famotidine 40 mg Take 1 tablet 30 tablet 0 05/27/2019 Discontinued tabletIndications: by mouth 9 Abdominal pain, daily. unspecified abdominal location documented as of this encounter (statuses as of 06/25/2019) Active Problems Problem Noted Date Acute renal [...] as of this encounter (statuses as of 06/25/2019) Resolved Problems Problem Noted Date Resolved Date [...] as of this encounter (statuses as of 06/25/2019) Immunizations Name Administration Dates Next Due Influenza [...] Nephrology Layla Woods, LANABS [id number] [place], [place] [address] 09/04/2019 Office Visit Family Medicine Yony Wilhelm MD [address] [place] [address] Dr Palma [place], [place] [address] 11/19/2019 Phys Ther Visit Endocrinology Diabetes & MacarioPayal monaco, RD Metabolism 26[address] [place], [place] 935[address] Health Maintenance Due Date Last Done Comments Zoster Recombinant Vaccine 1988 (SHINGRIX) (1 of 2) INFLUENZA VACCINE (#1) 2019 10/03/2018, 10/26/2016 HgA1C 11/28/2019 05/28/2019, 03/18/2019, 05/01/2018, Additional history exists EYE EXAM 12/06/2019 12/06/2018 CREATININE (SERUM) 05/28/2020 05/28/2019, 05/01/2019, 04/29/2019, Additional history exists LDL-C 05/28/2020 05/28/2019, 06/05/2017, 08/28/2015, Additional history exists URINE MICROALBUMIN 05/28/2020 05/28/2019, 08/28/2015 FOOT EXAM 06/04/2020 06/04/2019, 06/04/2019, 06/04/2019 Medicare Wellness Visit 06/04/2020 06/04/2019 DTaP,Tdap,and Td Vaccines (2 - Td) 06/04/2029 06/04/2019 PNEUMOCOCCAL VACCINES 65+ Completed 06/04/2019, 12/05/2016 Osteoporosis Screening Completed 06/11/2019 documented as of this encounter Implants Implanted Type Area Cook Pressure Device Shelf Model / Identifier Expiration Date Serial / Lot Iol LENS Right: Jamil 11/05/2021 [id number] / Implanted: Qty: 1 on 12/06/2017 by Marco Schaeffer MD at [facility] [id number] / [id number] Acrysofiq LENS Right: Jamil 01/03/2022 [id number] / Implanted: Qty: 1 on 12/20/2017 by Marco Schaeffer MD at [facility] [id number] / [id number] documented as of this encounter Results Not on filedocumented in this encounter Visit Diagnoses Diagnosis Abdominal pain, unspecified abdominal location documented in this encounter Insurance Payer Benefit Plan / Subscriber ID Effective Dates Phone Address Type Group MEDICARE MEDICARE PART xxxxxxxxxxx 1993-Rowena [phone] [address] Medicare A & B t 2 [id number] [place] [id number] documented as of this encounter
--- OUTSIDE RECORDS SUMMARY | 2019-10-17 11:23 | XMS REPORT | Summary of Care ---
:1940 Author Organization [facility] Address [address] [place] [address] Care Team Providers Name Role Phone Karma Angulo MD Beauty Consultant David Dubose MD Primary Care Provider Reason for Referral Radiology Services (Routine) Status Reason Specialty Diagnoses / Referred By Referred To Procedures Contact Contact Closed Diagnostic Diagnoses Age-related osteoporosis without current pathological fracture M81.0 (ICD-10-CM) - Age-related osteoporosis without current pathological fracture Edemekong, Radiology Procedures DEXA PERIPHERAL (FOREARM) CHG DEXA,BONE DENSITY, 1 + SITE, APPENDICULR SKELTN [id number] - DEXA PERIPHERAL (FOREARM) 39102 - CHG DEXA,BONE DENSITY, 1 + SITE, APPENDICULR SKPERCY Bhakta MD [address] [place] [address] Dr Schulte [address] [place] [address] Radiology Services (Routine) Status Reason Specialty Diagnoses / Referred By Referred To Procedures Contact Contact Closed Diagnostic Diagnoses Age-related osteoporosis without current pathological fracture M81.0 (ICD-10-CM) - Age-related osteoporosis without current pathological fracture Edemekong, Radiology Procedures DEXA PERIPHERAL (FOREARM) CHG DEXA,BONE DENSITY, 1 + SITE, APPENDICULR SKELTN [id number] - DEXA PERIPHERAL (FOREARM) 34084 - CHG DEXA,BONE DENSITY, 1 + SITE, APPENDICULR SKELTN Peter, MD [address] [place] [address] Dr Schulte [address] [place] [address] Reason for Visit Radiology Services (Routine) Status Reason Specialty Diagnoses / Referred By Referred To Procedures Contact Contact Closed Diagnostic Diagnoses Age-related osteoporosis without current pathological fracture M81.0 (ICD-10-CM) - Age-related osteoporosis without current pathological fracture Edemekong, Radiology Procedures DEXA PERIPHERAL (FOREARM) CHG DEXA,BONE DENSITY, 1 + SITE, APPENDICVIRGINIA LOPEZ [id number] - DEXA PERIPHERAL (FOREARM) 41978 - CHG DEXA,BONE DENSITY, 1 + SITE, APPENDICULR JESSICA Bhakta MD [address] [place] [address] Dr Schulte [address] [place] [address] Encounter Details Date Type Department Care Team Description 06/11/2019 Hospital Encounter [facility] Yony Wilhelm MD [facility] Breast Imaging [address] [place] [address] Dr Schulte [address] [place] [address] [place] [address] [phone] Allergies Active Allergy Reactions Severity Noted Date [...] Nephrology Layla Woods, ANA [address] [place] [address] [phone] 09/04/2019 Office Visit Family Medicine Yony Wilhelm MD [address] [place] [address] [place] [address] [phone] 11/19/2019 Corncob Pipe Supervisor Visit Endocrinology Diabetes & Macario, Payal, RD Metabolism [address] [place] [address] [phone] Health Maintenance Due Date Last Done Comments [...] of this encounter Implants Implanted Type Area Licensed Optical Dispenser Device Shelf Model / Identifier Expiration Date Serial / Lot Iol LENS Right: Jamil 11/05/2021 [id number] / Implanted: Qty: 1 on 12/06/2017 by Marco Schaeffer MD at [facility] [id number] / [id number] Acrysofiq LENS Right: Jamil 01/03/2022 [id number] / Implanted: Qty: 1 on 12/20/2017 by Marco Schaeffer MD at [facility] [id number] / [id number] documented as of this encounter Procedures Procedure Name Priority Date/Time Associated Diagnosis Comments DEXA PERIPHERAL Routine 06/11/2019 9:15 Age-related Results for this (FOREARM) AM CDT osteoporosis without procedure are in current pathological the results fracture section. documented in this encounter Results DEXA PERIPHERAL (FOREARM) (06/11/2019 9:15 AM CDT) Specimen Impressions Performed [...] is calculated at 0.576 g/cm2. Procedure Note [facility], Radiant Results Inft User - 06/11/2019 9:29 AM CDT * * * * * [...] BOX Medicare A & B t 2 [id number] [place] [phone] documented as of this encounter
--- OUTSIDE RECORDS SUMMARY | 2019-10-17 11:23 | XMS REPORT | Summary of Care ---
:1940 Author Organization [facility] Address [address] [place] [address] Care Team Providers Name Role Phone Karma Angulo MD Executive Legal Secretary David Dubose MD Primary Care Provider Reason for Visit Reason Comments Notification health maintenance Encounter Details Date Type Department Care Team Description 06/14/2019 Telephone [facility] Wellness David Dubose III, Notification ( health and Outreach MD maintenance ) [address] [place] [phone] Allergies Active Allergy Reactions Severity Noted Date Comments Penicillins Anaphylaxis 08/22/2014 documented as of this encounter (statuses as of 06/14/2019) Medications Medication Sig Dispensed Refills Start Date [...] as of this encounter (statuses as of 06/14/2019) Active Problems Problem Noted Date Acute renal [...] as of this encounter (statuses as of 06/14/2019) Resolved Problems Problem Noted Date Resolved Date [...] as of this encounter (statuses as of 06/14/2019) Immunizations Name Administration Dates Next Due Influenza [...] Nephrology Layla Woods, ANA [address] [place] [address] [phone] 09/04/2019 Office Visit Family Medicine Yony Wilhelm MD [address] [place] [address] [place] [address] [phone] 11/19/2019 Educational Aide Visit Endocrinology Diabetes & MacarioPayal, RD Metabolism [address] [place], [place] [address] Health Maintenance Due Date Last Done Comments Zoster Recombinant Vaccine 1988 (SHINGRIX) (1 of 2) INFLUENZA VACCINE 07/07/2019 10/03/2018, 10/26/2016 HgA1C 11/28/2019 [...] of this encounter Implants Implanted Type Area Rim Technician Device Shelf Model / Identifier Expiration Date Serial / Lot Iol LENS Right: Jamil 11/05/2021 [id number] / Implanted: Qty: 1 on 12/06/2017 by Marco Schaeffer MD at [facility] [id number] / [id number] Acrysofiq LENS Right: Jamil 01/03/2022 [id number] / Implanted: Qty: 1 on 12/20/2017 by Marco Schaeffer MD at [facility] [id number] / [id number] documented as of this encounter Results Not on filedocumented in this encounter Insurance Payer Benefit Plan / Subscriber ID Effective Dates Phone Address Type Group MEDICARE MEDICARE PART xxxxxxxxxxx 1991-Rowena [phone] [address] [address] Medicare A & B t 2 [id number] [place] [phone] documented as of this encounter
--- OUTSIDE RECORDS SUMMARY | 2019-10-17 11:23 | XMS REPORT | Summary of Care ---
:1940 Author Organization [facility] Address [address] [id number] Care Team Providers Name Role Phone Karma Angulo MD Reimbursement Counselor David Dubose MD Primary Care Provider Reason for Visit Reason Comments Social Work Encounter Details Date Type Department Care Team Description 06/11/2019 Patient Outreach [facility] Pediatrics Marisela Esquivel, ALIVIA Social Work & Adult Primary Care- [address] [place] [address] [place] [address] Allergies Active Allergy Reactions Severity Noted Date Comments Penicillins Anaphylaxis 08/22/2014 documented as of this encounter (statuses as of 06/21/2019) Medications Medication Sig Dispensed Refills Start Date [...] as of this encounter (statuses as of 06/21/2019) Active Problems Problem Noted Date Acute renal [...] as of this encounter (statuses as of 06/21/2019) Resolved Problems Problem Noted Date Resolved Date [...] as of this encounter (statuses as of 06/21/2019) Immunizations Name Administration Dates Next Due Influenza [...] on filedocumented in this encounter Progress Notes Marisela Esquivel LCSW - 06/11/2019 2:04 PM CDTSocial Work Note SW consulted by provider; reason unclear. Called patient's home; was greeted by someone who announced that patient was asleep and asked SW to call again tomorrow morning. Marisela Esquivel LCSW, ACM-SW [facility] documented in this encounter Plan of Treatment Date Type Specialty Care Team Description 08/27/2019 Office Visit Nephrology Layla Woods, ANA [id number] [place], [place] [address] 09/04/2019 Office Visit Family Medicine Yony Wilhelm MD [address] [place] [address] Dr Palma [place], [place] [address] 11/19/2019 Radiology Therapist Visit Endocrinology Diabetes & MacarioPayal monaco, RD Metabolism 26[address] [place] [address] Health Maintenance Due Date Last [...] of this encounter Implants Implanted Type Area Casino Attendant Device Shelf Model / Identifier Expiration Date Serial / Lot Iol LENS Right: Jamil 11/05/2021 [id number] / Implanted: Qty: 1 on 12/06/2017 by Marco Schaeffer MD at [facility] [id number] / [id number] Acrysofiq LENS Right: Jamil 01/03/2022 [id number] / Implanted: Qty: 1 on 12/20/2017 by Marco Schaeffer MD at [facility] [id number] / [id number] documented as of this encounter Results Not on filedocumented in this encounter Insurance Payer Benefit Plan / Subscriber ID Effective Dates Phone Address Type Group MEDICARE MEDICARE PART xxxxxxxxxxx 1991-Rowena [phone] [facility] [address] Medicare A & B t 2 [id number] [place] [id number] documented as of this encounter
--- OUTSIDE RECORDS SUMMARY | 2019-10-17 11:24 | XMS REPORT | Summary of Care ---
:1940 Author Organization [facility] - [facility] Address [address] [place] [address] Care Team Providers Name Role Phone Karma Angulo MD Growth Hacker David Dubose MD Primary Care Provider Reason for Visit Reason Comments Refill Request Encounter Details Date Type Department Care Team Description 07/12/2019 Refill [facility] Pediatric and David Dubose III, MD Refill Request Adult Primary Care- [address] [place] [address] Dr. Chawla [address] , [place] [id number] [facility] [phone] [place] [address] [phone] Allergies Active Allergy Reactions Severity Noted Date Comments Penicillins Anaphylaxis 08/22/2014 documented as of this encounter (statuses as of 07/16/2019) Medications Medication Sig Dispensed Refills Start Date End Date Status gabapentin 300 mg Take 1 capsule 90 [...] for abdominal location Nausea and Vomiting (N/V). traMADol 50 mg Take 1 tablet 20 tablet 0 05/27/2019 Active tabletIndications: by mouth every Primary 6 (six) hours osteoarthritis of as needed both knees, Other (pain). chronic pain butalbital-acetamino Take 2 tablets 90 tablet 1 06/04/2019 Active phen-caff 50-325-40 by mouth 2 mg (two) times tabletIndications: daily as Head and face pain needed (severe headaches). famotidine 40 mg Take 1 tablet 90 tablet 1 06/25/2019 Active tabletIndications: by mouth Abdominal pain, daily. unspecified abdominal location SERTraline 100 mg Take 1 tablet 30 tablet 1 07/16/2019 Active tabletIndications: by mouth Anxiety daily. proMETHazine 25 mg Take 1 tablet 30 tablet 0 07/16/2019 Active tabletIndications: by mouth 3 Abdominal pain, (three) times unspecified daily as abdominal location needed for Nausea and Vomiting (N/V). zolpidem (AMBIEN) 5 Take 1 tablet 30 tablet 0 07/16/2019 Active mg by mouth at tabletIndications: bedtime as Primary insomnia needed for Insomnia. proMETHazine 25 mg Take 1 tablet 30 tablet 0 05/27/2019 Discontinued tabletIndications: by mouth 3 9 Abdominal pain, (three) times unspecified daily as abdominal location needed for Nausea and Vomiting (N/V). SERTraline 100 mg Take 1 tablet 30 tablet 1 05/27/2019 Discontinued tabletIndications: by mouth 9 Anxiety daily. documented as of this encounter (statuses as of 07/16/2019) Active Problems Problem Noted Date Acute renal [...] as of this encounter (statuses as of 07/16/2019) Resolved Problems Problem Noted Date Resolved Date [...] as of this encounter (statuses as of 07/16/2019) Immunizations Name Administration Dates Next Due Influenza [...] Nephrology Layla Woods, LANABS [id number] [place], [place] [address] 09/04/2019 Office Visit Family Medicine Yony Wilhelm MD [address] [place] [address] Dr Palma [place], [place] [id number] 11/19/2019 Secondary History Teacher Visit Endocrinology Diabetes & MacarioPayal monaco, RD Metabolism 2660 [place], [place] 6[address] Health Maintenance Due Date Last Done Comments [...] of this encounter Implants Implanted Type Area Data Keyer Device Shelf Model / Identifier Expiration Date Serial / Lot Iol LENS Right: Jamil 11/05/2021 [id number] / Implanted: Qty: 1 on 12/06/2017 by Marco Schaeffer MD at [facility] [id number] / [id number] Acrysofiq LENS Right: Jamil 01/03/2022 [id number] / Implanted: Qty: 1 on 12/20/2017 by Marco Schaeffer MD at [facility] [id number] / [id number] documented as of this encounter Results Not on filedocumented in this encounter Visit Diagnoses Diagnosis Anxiety Anxiety state, unspecified Abdominal pain, unspecified abdominal location Primary insomnia Persistent disorder of initiating or maintaining sleep documented in this encounter Insurance Payer Benefit Plan / Subscriber ID Effective Dates Phone Address Type Group MEDICARE MEDICARE PART xxxxxxxxxxx 1991Lionel [phone] [address] Medicare A & B t 2 [id number] [place] [id number] documented as of this encounter
--- OUTSIDE RECORDS SUMMARY | 2019-10-17 11:24 | XMS REPORT | Summary of Care ---
:1940 Author Organization [facility] Address [address] [place] [address] Care Team Providers Name Role Phone Karma Angulo MD Substance Abuse Prevention Coordinator David Dubose MD Primary Care Provider Reason for Visit Reason Comments Rx Concern/Question status of proMETHazine 25 mg tablet refill Encounter Details Date Type Department Care Team Description 07/16/2019 Telephone [facility] Pediatric Yony Wilhelm, Rx Concern/ Question and Adult Primary MD (status of proMETHazine Care- [address] 25 mg tablet refill) [address] [place] [address] , [facility] [address] [place] [address] [place] [phone] [address] [phone] Allergies Active Allergy Reactions Severity Noted Date Comments Penicillins Anaphylaxis 08/22/2014 documented as of this encounter (statuses as of 07/17/2019) Medications Medication Sig Dispensed Refills Start Date End Date Status gabapentin 300 mg Take 1 capsule by 90 capsule 1 05/27/2019 Active capsuleIndications: mouth 2 (two) Neuropathy times daily. hydrALAZINE 100 mg Take 1 tablet by 270 tablet 3 05/27/2019 Active tabletIndications: mouth every 8 Essential hypertension (eight) hours. ipratropium-albuterol USE ONE AMPULE IN 3 Box 3 05/27/2019 Active 0.5 mg-3 mg(2.5 mg NEBULIZER EVERY 6 base)/3 mL nebulizer HOURS solutionIndications: Chronic obstructive pulmonary disease, unspecified COPD type Magnesium Oxide 420 mg Take 400 mg by 30 tablet 0 05/27/2019 Active TabIndications: mouth daily. Abdominal pain, unspecified abdominal location ondansetron (ZOFRAN) 4 Take 1 tablet by 12 tablet 0 05/27/2019 Active mg tabletIndications: mouth every 8 Abdominal pain, (eight) hours as unspecified abdominal needed for Nausea location and Vomiting (N/V). traMADol 50 mg Take 1 tablet by 20 tablet 0 05/27/2019 Active tabletIndications: mouth every 6 Primary osteoarthritis (six) hours as of both knees, Other needed (pain). chronic pain butalbital-acetaminoph Take 2 tablets by 90 tablet 1 06/04/2019 Active en-caff 50-325-40 mg mouth 2 (two) tabletIndications: times daily as Head and face pain needed (severe headaches). famotidine 40 mg Take 1 tablet by 90 tablet 1 06/25/2019 Active tabletIndications: mouth daily. Abdominal pain, unspecified abdominal location carvedilol 6.25 mg Take 1 tablet by 180 tablet 1 07/15/2019 Active tabletIndications: mouth 2 (two) Essential hypertension times daily with meals. documented as of this encounter (statuses as of 07/17/2019) Active Problems Problem Noted Date Acute renal [...] as of this encounter (statuses as of 07/17/2019) Resolved Problems Problem Noted Date Resolved Date [...] as of this encounter (statuses as of 07/17/2019) Immunizations Name Administration Dates Next Due Influenza [...] Nephrology Layla Woods, ANA [address] [place], [place] [address] 09/04/2019 Office Visit Family Medicine Yony Wilhelm MD [address] [place] [address] [place] [address] [phone] 11/19/2019 Director Rehabilitation Program Visit Endocrinology Diabetes & MacarioPayal, RD Metabolism 26[address] [place] [address] [phone] Health Maintenance Due Date Last Done Comments [...] of this encounter Implants Implanted Type Area Director Of Consulting Services Device Shelf Model / Identifier Expiration Date Serial / Lot Iol LENS Right: Jamil 11/05/2021 [id number] / Implanted: Qty: 1 on 12/06/2017 by Marco Schaeffer MD at [facility] [id number] / [id number] Acrysofiq LENS Right: Jamil 01/03/2022 [id number] / Implanted: Qty: 1 on 12/20/2017 by Marco Schaeffer MD at [facility] [id number] / [id number] documented as of this encounter Results Not on filedocumented in this encounter Insurance Payer Benefit Plan / Subscriber ID Effective Dates Phone Address Type Group MEDICARE MEDICARE PART xxxxxxxxxxx 1993-Rowena [phone] [address] Medicare A & B t 2 [id number] [place] [id number] documented as of this encounter
--- OUTSIDE RECORDS SUMMARY | 2019-10-17 11:24 | XMS REPORT | Summary of Care ---
:1940 Author Organization [facility] Address [address] [place] [address] Care Team Providers Name Role Phone Karma Angulo MD School Health Aide David Dubose MD Primary Care Provider Reason for Visit Reason Comments Refill Request Encounter Details Date Type Department Care Team Description 07/15/2019 Refill [facility] Pediatric and Yony Wilhelm MD Refill Request Adult Primary Care- [address] [place] [address] Dr Chawla Eris [address] [place] [address] , [place] [address] 205 [place] [address] [phone] Allergies Active Allergy Reactions Severity Noted Date Comments Penicillins Anaphylaxis 08/22/2014 documented as of this encounter (statuses as of 07/15/2019) Medications Medication Sig Dispensed Refills Start Date [...] mouth Abdominal pain, daily. unspecified abdominal location carvedilol 6.25 mg Take 1 tablet 180 tablet 1 07/15/2019 Active tabletIndications: by mouth 2 Essential (two) times hypertension daily with meals. carvedilol 6.25 mg Take 1 tablet 60 tablet 1 05/27/2019 Discontinued tabletIndications: by mouth 2 9 Essential (two) times hypertension daily with meals. documented as of this encounter (statuses as of 07/15/2019) Active Problems Problem Noted Date Acute renal [...] as of this encounter (statuses as of 07/15/2019) Resolved Problems Problem Noted Date Resolved Date [...] as of this encounter (statuses as of 07/15/2019) Immunizations Name Administration Dates Next Due Influenza [...] Nephrology Layla Woods MBBS [id number] [place] [address] [phone] 09/04/2019 Office Visit Family Medicine Yony Wilhelm MD [address] [place] [address] [place] [address] [phone] 11/19/2019 Endocrinology Physician Visit Endocrinology Diabetes & MacarioPayal monaco, ALE Metabolism [address] [place], [place] [address] Health Maintenance Due Date Last Done Comments [...] of this encounter Implants Implanted Type Area Anglesmith Device Shelf Model / Identifier Expiration Date Serial / Lot Iol LENS Right: Jamil 11/05/2021 [id number] / Implanted: Qty: 1 on 12/06/2017 by Marco Schaeffer MD at [facility] [id number] / [id number] Acrysofiq LENS Right: Jamil 01/03/2022 [id number] / Implanted: Qty: 1 on 12/20/2017 by Marco Schaeffer MD at [facility] [id number] / [id number] documented as of this encounter Results Not on filedocumented in this encounter Visit Diagnoses Diagnosis Essential hypertension Unspecified essential hypertension documented in this encounter Insurance Payer Benefit Plan / Subscriber ID Effective Dates Phone Address Type Group MEDICARE MEDICARE PART xxxxxxxxxxx 1991-Rowena [phone] [address] [facility] Medicare A & B t 2 [id number] [place] [id number] documented as of this encounter
--- OUTSIDE RECORDS SUMMARY | 2019-10-17 11:25 | XMS REPORT | Summary of Care ---
:1940 Author Organization [facility] Address [address] [place] [address] Care Team Providers Name Role Phone Karma Angulo MD Coning Machine Operator David Dubose MD Primary Care Provider Reason for Visit Reason Comments Refill Request Encounter Details Date Type Department Care Team Description 07/21/2019 Refill [facility] Pediatric and David Dubose III, MD Refill Request Adult Primary Care- [address] [place] [address] Dr. Chawla [address] [place] [address] , [place] [id number] [facility] [phone] [place] [address] [phone] Allergies Active Allergy Reactions Severity Noted Date Comments Penicillins Anaphylaxis 08/22/2014 documented as of this encounter (statuses as of 07/25/2019) Medications Medication Sig Dispensed Refills Start Date [...] mouth daily. Abdominal pain, unspecified abdominal location SERTraline 100 mg Take 1 tablet by 30 tablet 1 07/16/2019 Active tabletIndications: mouth daily. Anxiety proMETHazine 25 mg Take 1 tablet by 30 tablet 0 07/16/2019 Active tabletIndications: mouth 3 (three) Abdominal pain, times daily as unspecified abdominal needed for Nausea location and Vomiting (N/V). zolpidem (AMBIEN) 5 mg Take 1 tablet by 30 tablet 0 07/16/2019 Active tabletIndications: mouth at bedtime Primary insomnia as needed for Insomnia. carvedilol 6.25 mg Take 1 tablet by 180 tablet 1 07/15/2019 Active tabletIndications: mouth 2 (two) Essential hypertension times daily with meals. COLCHICINE 0.6 mg TAKE 1 TABLET BY 30 tablet 11 07/25/2019 Active tabletIndications: MOUTH ONCE DAILY Primary osteoarthritis TO PREVENT GOUT of both knees documented as of this encounter (statuses as of 07/25/2019) Active Problems Problem Noted Date Acute renal [...] as of this encounter (statuses as of 07/25/2019) Resolved Problems Problem Noted Date Resolved Date [...] as of this encounter (statuses as of 07/25/2019) Immunizations Name Administration Dates Next Due Influenza [...] Nephrology Layla Woods, ANA [address] [place] [address] [phone] 09/04/2019 Office Visit Family Medicine Yony Wilhelm MD [address] [place] [address] [place] [address] [phone] 11/19/2019 Powdered Sugar Supervisor Visit Endocrinology Diabetes & MacarioPayal, RD Metabolism [address] [place] [address] [phone] Health Maintenance Due Date Last Done Comments [...] of this encounter Implants Implanted Type Area Reed Or Wind Instrument Tuner Device Shelf Model / Identifier Expiration Date Serial / Lot Iol LENS Right: Jamil 11/05/2021 [id number] / Implanted: Qty: 1 on 12/06/2017 by Marco Schaeffer MD at [facility] [id number] / [id number] Acrysofiq LENS Right: Jamil 01/03/2022 [id number] / Implanted: Qty: 1 on 12/20/2017 by Marco Schaeffer MD at [facility] [id number] / [id number] documented as of this encounter Results Not on filedocumented in this encounter Visit Diagnoses Diagnosis Primary osteoarthritis of both knees Primary localized osteoarthrosis, lower leg documented in this encounter Insurance Payer Benefit Plan / Subscriber ID Effective Dates Phone Address Type Group MEDICARE MEDICARE PART xxxxxxxxxxx 1991-Rowena [phone] [address] Medicare A & B t 2 [id number] [place] [id number] documented as of this encounter
--- NOTE | 2019-10-17 12:24 | RAD REPORT ---
EXAM DESCRIPTION: RAD - Chest Single View - 10/17/2019 12:04 pm CLINICAL HISTORY: CHEST PAIN Chest pain. COMPARISON: Chest Single View dated 03/05/2017; Chest Single View dated 12/28/2016; CHEST SINGLE VIEW dated 05/13/2008; CHEST SINGLE VIEW dated 04/24/2008 FINDINGS: Portable technique limits examination quality. Mild interstitial pulmonary edema seen. Heart is moderately enlarged in size. No displaced fractures. Tortuous thoracic aorta. IMPRESSION: Mild CHF.
[2019-10-17 12:31] LABS: Absolute Lymphocytes (CBC) 2.2 K/uL (0.7-4.9); Basophils % 0.8 % (0-1.3); Hematocrit 26.7 % (36.0-45.0); Lymphocytes % 35.6 % (15.3-44.8); MPV 8.3 fL (7.6-11.3); RBC Red Blood Cell Count 3.31 M/uL (3.86-4.86)
[2019-10-17 12:33] LABS: Protime INR 0.91
[2019-10-17] MEDS ORDERED: ONDANSETRON 4 MG/2 ML VIAL ONE (12:59)
[2019-10-17] MEDS ORDERED: MORPHINE 4 MG/ML SYR ONE (12:59)
--- NOTE | 2019-10-17 13:38 | RAD REPORT ---
EXAM DESCRIPTION: RAD - Elbow Left 3 View - 10/17/2019 1:29 pm CLINICAL HISTORY: PAIN COMPARISON: Knee Left 3 View dated 10/17/2019; Chest Single View dated 10/17/2019 FINDINGS: The bones are osteopenic. No acute fracture is seen.
--- NOTE | 2019-10-17 13:39 | RAD REPORT ---
EXAM DESCRIPTION: RAD - Knee Left 3 View - 10/17/2019 1:32 pm CLINICAL HISTORY: PAIN COMPARISON: Knee Left 3 View dated 03/05/2017 FINDINGS: Severe tricompartmental osteoarthritis is present. A small suprapatellar joint effusion is seen. No acute fracture demonstrated. Large distal femoral bone infarct noted.
[2019-10-17 13:47] LABS: ALT/SGPT 22 U/L (12-78); AST/SGOT 20 U/L (15-37); Albumin 3.7 g/dL (3.4-5.0); Alkaline Phosphatase 146 U/L (45-117); BUN Blood Urea Nitrogen 57 mg/dL (7-18); Bicarbonate 23 mmol/L (21-32); Bilirubin Direct < 0.1 mg/dL (0-0.2); Bilirubin Total 0.2 mg/dL (0.2-1.0); Glucose Level 85 mg/dL (74-106); Magnesium 2.4 mg/dL (1.8-2.4); NT PRO-BNP 296 pg/mL (<450); Potassium 4.4 mmol/L (3.5-5.1); Sodium Level 138 mmol/L (136-145); Troponin (Emerg Dept Use Only) < 0.02 ng/mL (0.0-0.045)
--- NOTE | 2019-10-17 14:21 | ER ---
Nurse's Notes [facility] Name: Daksha Olson Age: 78 yrs Sex: Female : 1940 Arrival Date: 10/17/2019 Time: 11:05 Bed 6 Private MD: Diagnosis: Chest pain, unspecified;Anemia, unspecified;CHF;Pain in left knee;Pain in left elbow Presentation: 10/17 11:00 Presenting complaint: EMS states: pt was seen and discharged to home after evaluation sg post fall. pt called for EMS upon arrival at home for having midsternal chest pain, described as stabbing, reports having pain in Bilateral arms that began this morning as well, pt denies N/V/D/Fever, reports having shortness of breath and feeling anxious, pt behavior appears drowsy at this time. Transition of care: patient was not received from another setting of care. Onset of symptoms was October 17, 2019. Risk Assessment: Do you want to hurt yourself or someone else? Patient reports no desire to harm self or others. Initial Sepsis Screen: Does the patient meet any 2 criteria? No. Patient's initial sepsis screen is negative. Does the patient have a suspected source of infection? No. Patient's initial sepsis screen is negative. Care prior to arrival: Medication(s) given: ASA, 325 mg, Normal saline infusion, 250 mL Nitroglycerin, 0.4 mg SL zofran 4 mg, IV initiated. 20 GA, in the right antecubital area, Glucose check: 122. 11:00 Method Of Arrival: EMS: [facility] sg 11:00 Acuity: MEÑO 3 sg Triage Assessment: 11:10 General: Appears in no apparent distress. unkempt, well developed, well nourished, sg Behavior is calm, cooperative, appropriate for age, Smells of urine. Pain: Complains of pain in mid-sternal area, right arm and left arm Quality of pain is described as aching, sharp. Neuro: Level of Consciousness is awake, alert, obeys commands, Oriented to person, place, time. Cardiovascular: Reports chest pain, shortness of breath, Heart tones S1 S2 present Capillary refill is brisk in bilateral fingers Patient's skin is warm and dry. Chest pain is described as vague, is located in anterior chest wall substernal area episodes are intermittent. Respiratory: Airway is patent Respiratory effort is even, unlabored, Respiratory pattern is regular, symmetrical. Derm: Skin is intact, Skin is dry, Skin is normal, Skin temperature is cool. Musculoskeletal: Circulation, motion, and sensation intact. Swelling absent. Historical: - Allergies: 11:10 PENICILLINS; sg - PMHx: 11:10 CHF; Chronic pain; Diabetes - NIDDM; GERD; High Cholesterol; Hypertension; sg - PSHx: 11:10 None; sg - Immunization history:: Adult Immunizations unknown. - Social history:: Smoking status: Patient/guardian denies using tobacco. - Ebola Screening: : Patient negative for fever greater than or equal to 101.5 degrees Fahrenheit, and additional compatible Ebola Virus Disease symptoms Patient denies exposure to infectious person Patient denies travel to an Ebola-affected area in the 21 days before illness onset No symptoms or risks identified at this time. Screenin:10 Abuse screen: Denies threats or abuse. Denies injuries from another. Nutritional jl7 screening: No deficits noted. Tuberculosis screening: No symptoms or risk factors identified. Fall Risk Fall in past 12 months (25 points). IV access (20 points). Ambulatory Aid- Crutches/Cane/Walker (15 pts). Gait- Weak (10 pts.). Mental Status- Overestimates/Forgets Limitations (15 pts.). Total Pollock Fall Scale indicates High Risk Score (45 or more points). Fall prevention measures have been instituted. Side Rails Up X 2 Placed Close to Nursing Station Frequent Obs/Assessments Occuring As available patient and family educated on Fall Prevention Program and Strategies. Assessment: 13:00 Reassessment: nima at bedside for recollect of chemistry tests at this time. sg 14:22 Reassessment: pt combination man light, pt assisted. sg 14:25 Reassessment: Patient appears in no apparent distress at this time. pt reports calling sg out for help, pt educated on the use of the call sharma at bedside. pt reports " I peed on myself, I need to be cleaned.", pt cleaned of incontinence, new linen provided, Ce RN assist. 14:40 Reassessment: pt combination man light, pt assisted. sg 14:50 Reassessment: Patient appears in no apparent distress at this time. Patient and/or sg family updated on plan of care and expected duration. Pain level reassessed. pt requesting a quieter room, pt moved to ER exam room 6 via stretcher, pt is thankful, will continue to monitor. 15:15 Reassessment: pt combination man light, pt assisted. sg 15:30 Reassessment: Patient appears in no apparent distress at this time. pt combination man light, sg pt assisted. 16:10 Reassessment: Patient appears in no apparent distress at this time. Patient and/or sg family updated on plan of care and expected duration. Pain level reassessed. Patient is alert, oriented x 3, equal unlabored respirations, skin warm/dry/pink. pt combination man light, pt assisted. Vital Signs: 11:09 Pulse 57; Resp 16; Temp 97.6(T); Pulse Ox 96% on R/A; Pain 10/10; sg 11:09 BP 131 / 55; sg 11:09 Weight 78.02 kg (R); Height 5 ft. 4 in. (162.56 cm) (R); sg 12:30 BP 127 / 94; Pulse 58; Resp 16 S; Pulse Ox 100% on R/A; jl7 14:00 BP 130 / 60; Pulse 60; Resp 16 S; Pulse Ox 100% on R/A; jl7 16:07 BP 147 / 70; Pulse 65; Resp 17 S; Pulse Ox 99% on R/A; jl7 11:09 Body Mass Index 29.52 (78.02 kg, 162.56 cm) sg ED Course: 11:05 Patient arrived in ED. sg 11:05 Arm band placed on. sg 11:09 Triage completed. sg 11:10 Patient has correct armband on for positive identification. Placed in gown. Bed in low jl7 position. Call light in reach. Side rails up X2. classroom monitor on. Pulse ox on. NIBP on. 11:20 Maintain EMS IV. Dressing intact. Site clean \\T\\ dry. Gauge \\T\\ site: 20 G RAC. sg 11:24 EKG done, by sanitation technician. reviewed by Hernan Briseno MD. at1 11:28 Hernan Briseno MD is Attending Physician. kdr 11:39 Arnulfo Scott RN is Primary Nurse. sg 11:47 Missed attempt(s): 22 gauge in left antecubital area. Bleeding controlled, band aid jb1 applied, catheter tip intact. 12:09 XRAY Chest (1 view) In Process Unspecified. EDMS 13:34 Elbow Left 3 View XRAY In Process Unspecified. EDMS 13:34 Knee Left 3 View XRAY In Process Unspecified. EDMS 14:19 Brad Zarate MD is Hospitalizing Provider. kdr 14:30 Warm blanket given. Verbal reassurance given. Head of bed elevated. Bath given. Cleaned sg of incontinence. Linen changed. 16:11 No provider procedures requiring assistance completed. Patient admitted, IV remains in jl7 place. intact, No redness/swelling at site. Patient maintains SpO2 saturation greater than 95% on room air. Administered Medications: 13:00 Drug: morphine 1 mg Route: IVP; Site: right hand; sg 13:58 Follow up: Response: No adverse reaction; Pain is decreased sg 13:00 Drug: Zofran 4 mg Route: IVP; Site: right hand; sg 13:59 Follow up: Response: No adverse reaction sg Outcome: 14:20 Decision to Hospitalize by Provider. kdr 16:11 Admitted to Tele accompanied by tech, via stretcher, room 401, with chart, Report jl7 called to KONSTANTIN Smith 16:11 Condition: stable 16:11 Discharge instructions given to patient, Instructed on the need for admit, Demonstrated understanding of instructions. 16:27 Patient left the ED. sg Signatures: Dispatcher [employer] Robert Lyon jb1 Arnulfo Scott RN RN sg Rittger, Kevin, MD MD kdr Gonzales, Amanda, orchestrator EKG Tat1 Gonzalez Eisenberg RN RN jl7 Corrections: (The following items were deleted from the chart) 11:10 11:00 Care prior to arrival: Medication(s) given: ASA, 325 mg, Normal saline infusion, sg 250 mL zofran 4 mg, IV initiated. 20 GA, in the right antecubital area, Glucose check: 122 sg
--- NOTE | 2019-10-17 14:22 | EDPHYS ---
Physician Documentation [facility] Name: Daksha Olson Age: 78 yrs Sex: Female : 1940 Arrival Date: 10/17/2019 Time: 11:05 Bed 6 Private MD: ED Physician Hernan Briseno HPI: 10/17 12:52 This 78 yrs old Black Female presents to ER via EMS with complaints of Chest Pain > 30 kdr y/o, Arm Pain. 12:52 The patient or guardian reports chest pain that is located primarily in the anterior kdr chest wall. Onset: suddenly, this morning, at 08:30. The pain does not radiate. Associated signs and symptoms: Pertinent positives: shortness of breath, Pertinent negatives: diaphoresis, dizziness. The chest pain is described as aching, burning, dull, a pressure. Duration: The patient or guardian reports a single episode, that is still ongoing. Modifying factors: The symptoms are alleviated by nothing. the symptoms are aggravated by movement. Severity of pain: At its worst the pain was mild in the emergency department the pain is unchanged. The patient has not experienced similar symptoms in the past. The patient states that she had acute onset of chest pain at 8:30. She then had a fall and injured her left arm and knee. She was evaluated at [facility] but denies that she was evaluated for her CP which she states was an 8/10. She has no other associated s/s including no F/C/N/V, SOB. The patient does not appear to be in acute distress and only reacts to apparent internal injury to left hand.. Historical: - Allergies: 11:10 PENICILLINS; sg - PMHx: 11:10 CHF; Chronic pain; Diabetes - NIDDM; GERD; High Cholesterol; Hypertension; sg - PSHx: 11:10 None; sg - Immunization history:: Adult Immunizations unknown. - Social history:: Smoking status: Patient/guardian denies using tobacco. - Ebola Screening: : Patient negative for fever greater than or equal to 101.5 degrees Fahrenheit, and additional compatible Ebola Virus Disease symptoms Patient denies exposure to infectious person Patient denies travel to an Ebola-affected area in the 21 days before illness onset No symptoms or risks identified at this time. ROS: 16:48 Constitutional: Negative for fever, chills, and weight loss, Eyes: Negative for injury, kdr pain, redness, and discharge, Neck: Negative for injury, pain, and swelling. 16:48 ENT: Negative for injury, pain, and discharge, Respiratory: Negative for shortness of kdr breath, cough, wheezing, and pleuritic chest pain, Abdomen/GI: Negative for abdominal pain, nausea, vomiting, diarrhea, and constipation, Back: Negative for injury and pain, : Negative for injury, bleeding, discharge, and swelling, Skin: Negative for injury, rash, and discoloration, Neuro: Negative for headache, weakness, numbness, tingling, and seizure activity. Psych: Negative for depression, anxiety, suicide ideation, homicidal ideation, and hallucinations, Allergy/Immunology: Negative for hives, rash, and allergies, Endocrine: Negative for neck swelling, polydipsia, polyuria, polyphagia, and marked weight changes, Hematologic/Lymphatic: Negative for swollen nodes, abnormal bleeding, and unusual bruising. 16:48 MS/extremity: Positive for contusion, pain, tenderness, Negative for acute changes, pain, tenderness. Exam: 16:48 Constitutional: This is a well developed, well nourished patient who is awake, alert, kdr and in no acute distress. Head/Face: Normocephalic, atraumatic. Eyes: Pupils equal round and reactive to light, extra-ocular motions intact. Lids and lashes normal. Conjunctiva and sclera are non-icteric and not injected. Cornea within normal limits. Periorbital areas with no swelling, redness, or edema. Neck: Trachea midline, no thyromegaly or masses palpated, and no cervical lymphadenopathy. Supple, full range of motion without nuchal rigidity, or vertebral point tenderness. No Meningismus. Chest/axilla: Normal chest wall appearance and motion. Nontender with no deformity. No lesions are appreciated. Cardiovascular: Regular rate and rhythm with a normal S1 and S2. No gallops, murmurs, or rubs. Normal PMI, no JVD. No pulse deficits. Respiratory: Lungs have equal breath sounds bilaterally, clear to auscultation and percussion. No rales, rhonchi or wheezes noted. No increased work of breathing, no retractions or nasal flaring. Abdomen/GI: Soft, non-tender, with normal bowel sounds. No distension or tympany. No guarding or rebound. No evidence of tenderness throughout. Back: No spinal tenderness. No costovertebral tenderness. Full range of motion. Skin: Warm, dry with normal turgor. Normal color with no rashes, no lesions, and no evidence of cellulitis. Neuro: Awake and alert, GCS 15, oriented to person, place, time, and situation. Cranial nerves II-XII grossly intact. Motor strength 5/5 in all extremities. Sensory grossly intact. Cerebellar exam normal. Normal gait. Psych: Awake, alert, with orientation to person, place and time. Behavior, mood, and affect are within normal limits. 16:48 Musculoskeletal/extremity: Extremities: noted in the left antecubital area, left elbow and palmar aspect of left forearm: noted in the left leg: contusion, decreased ROM, pain. Vital Signs: 11:09 Pulse 57; Resp 16; Temp 97.6(T); Pulse Ox 96% on R/A; Pain 10/10; sg 11:09 BP 131 / 55; sg 11:09 Weight 78.02 kg (R); Height 5 ft. 4 in. (162.56 cm) (R); sg 12:30 BP 127 / 94; Pulse 58; Resp 16 S; Pulse Ox 100% on R/A; jl7 14:00 BP 130 / 60; Pulse 60; Resp 16 S; Pulse Ox 100% on R/A; jl7 16:07 BP 147 / 70; Pulse 65; Resp 17 S; Pulse Ox 99% on R/A; jl7 11:09 Body Mass Index 29.52 (78.02 kg, 162.56 cm) sg MDM: 14:20 Patient medically screened. kdr 16:48 Data reviewed: vital signs, nurses notes, lab test result(s), radiologic studies. kdr Counseling: I had a detailed discussion with the patient and/or guardian regarding: the historical points, exam findings, and any diagnostic results supporting the discharge/admit diagnosis, lab results, radiology results, the need for further work-up and treatment in the hospital. 10/17 11:28 Order name: Basic Metabolic Panel; Complete Time: 14:12 kdr 10/17 11:28 Order name: CBC with Diff; Complete Time: 14:12 kdr 10/17 11:28 Order name: LFT's; Complete Time: 14: kdr 10/17 11:28 Order name: Magnesium; Complete Time: 14:12 kdr 10/17 11:28 Order name: NT PRO-BNP; Complete Time: 14:12 kdr 10/17 11:28 Order name: PT-INR; Complete Time: 14:12 kdr 10/17 11:28 Order name: Troponin (emerg Dept Use Only); Complete Time: 14:12 kdr 10/17 11:28 Order name: XRAY Chest (1 view); Complete Time: 14:12 kdr 10/17 11:28 Order name: EKG; Complete Time: 11:30 kdr 10/17 12:52 Order name: Elbow Left 3 View XRAY; Complete Time: 14:12 kdr 10/17 12:52 Order name: Knee Left 3 View XRAY; Complete Time: 14:12 kdr 10/17 15:52 Order name: Diet Ada 1800 David: soft food please; Complete Time: 15:53 mg2 10/17 11:28 Order name: Cardiac monitoring; Complete Time: 11:30 kdr 10/17 11:28 Order name: EKG - Nurse/Tech; Complete Time: 11:30 kdr 10/17 11:28 Order name: IV Saline Lock; Complete Time: 12:42 kdr 10/17 11:28 Order name: Labs collected and sent; Complete Time: 12:42 kdr 10/17 11:28 Order name: O2 Per Protocol; Complete Time: 11:30 kdr 10/17 11:28 Order name: O2 Sat Monitoring; Complete Time: 11:30 kdr 10/17 12:43 Order name: Labs - recollect needed: chemistries recollect needed; Complete Time: 13:11 eb Administered Medications: 13:00 Drug: morphine 1 mg Route: IVP; Site: right hand; sg 13:58 Follow up: Response: No adverse reaction; Pain is decreased sg 13:00 Drug: Zofran 4 mg Route: IVP; Site: right hand; sg 13:59 Follow up: Response: No adverse reaction sg Disposition: 10/17/19 14:20 Hospitalization ordered by Brad Zarate for Observation. Preliminary diagnosis are Chest pain, unspecified, Anemia, unspecified, CHF, Pain in left knee, Pain in left elbow. - Bed requested for Telemetry/MedSurg (observation). - Status is Observation. sg - Condition is Fair. - Problem is new. - Symptoms have improved. UTI on Admission? No Signatures: Dispatcher [employer] EDMS Arnulfo Scott RN RN sg Hernan Briseno MD MD [facility] Ricki Horvath RN RN ja1 Sydnie Rose Corrections: (The following items were deleted from the chart) 14:20 14:20 Hospitalization Ordered by Brad Zarate MD for Observation. Preliminary kdr diagnosis is Chest pain, unspecified; Anemia, unspecified; CHF. Bed requested for Telemetry/MedSurg (observation). Status is Observation. Condition is Fair. Problem is new. Symptoms have improved. UTI on Admission? No. kdr 15:53 14:20 10/17/2019 14:20 Hospitalization Ordered by Brad Zarate MD for Observation. ja1 Preliminary diagnosis is Chest pain, unspecified; Anemia, unspecified; CHF; Pain in left knee; Pain in left elbow. Bed requested for Telemetry/MedSurg (observation). Status is Observation. Condition is Fair. Problem is new. Symptoms have improved. UTI on Admission? No. kdr 16:27 15:53 10/17/2019 14:20 Hospitalization Ordered by Brad Zarate MD for Observation. sg Preliminary diagnosis is Chest pain, unspecified; Anemia, unspecified; CHF; Pain in left knee; Pain in left elbow. Bed requested for Telemetry/MedSurg (observation). Status is Observation. Condition is Fair. Problem is new. Symptoms have improved. UTI on Admission? No. ja1
--- NOTE | 2019-10-17 14:55 | EKG ---
Test Date: 2019-10-17 Test Time: 11:12:22 Hot Die Press Feeder: DEBORAH MEASUREMENT RESULTS: Intervals: Rate: 56 IL: 216 QRSD: 106 QT: 440 QTc: 424 [place]: P: 47 IL: 216 QRS: -41 T: 18 INTERPRETIVE STATEMENTS: Sinus bradycardia with 1st degree AV block Left axis deviation Minimal voltage criteria for LVH, may be normal variant Abnormal ECG Compared to ECG 08/29/2017 08:08:26 First degree AV block now present Left-axis deviation now present Sinus rhythm no longer present Left anterior fascicular block no longer present ST (T wave) deviation no longer present Electronically Signed On 10-17-19 14:54:57 [employer]CRAFT DELIVERY CHECKER by Prashant Bingham
--- NOTE | 2019-10-17 15:13 | P.HP ---
Certification for Inpatient Patient admitted to: Observation Practitioner: I am a practitioner with admitting privileges, knowledge of patient current condition, hospital course, and medical plan of care. Services: Services provided to patient in accordance with Admission requirements found in Title 42 Section 412.3 of the Code of Federal Regulations Patient History Date of Service: 10/17/19 Reason for admission: Fall History of Present Illness: Ms Olson is 78-year-old female with history of hypertension presented to the ER for evaluation after a fall. Patient is a poor historian. There is no family at bedside. Patient states that she fell out of the bed this morning on landed on left side. She was evaluated at a different emergency room and discharged. She presented back to [facility] for evaluation as she continued to experience left-sided pain. Pain includes the L shoulder, L arm, L abdominal area and LLE. She denies any chest pain. She denies any head trauma or loss of consciousness. Allergies Penicillins Allergy (Severe, Verified 03/06/17 09:14) Hives/Rash Home medications list reviewed: No (HOME MED LIST IS INACCURATE.) Home Medications: Diclofenac Sodium [Voltaren] 75 mg PO DAILY 03/05/17 Famotidine 20 mg PO DAILY 03/05/17 Gabapentin 200 mg PO TID 03/05/17 Amlodipine [Norvasc*] 10 mg PO DAILY #30 tab 03/09/17 Colchicine 0.6 mg PO DAILY #30 capsule 03/09/17 Cyanocobalamin [Vitamin B-12*] 1,000 mcg IM EVERY 7TH DAY #4 vial 03/09/17 Famotidine [Pepcid*] 20 mg PO DAILY #30 tab 03/09/17 Gabapentin [Neurontin*] 200 mg PO TID #120 cap 03/09/17 Hydralazine [Apresoline*] 50 mg PO BID #60 tab 03/09/17 Hydrocodone 10/APAP 325 [[place] 10/325*] 1 tab PO Q4HP PRN #20 tab 03/09/17 Magnesium Oxide [Mag 0X*] 400 mg PO BID #60 tab 03/09/17 Pravastatin Sodium 20 mg PO DAILY #30 tablet 03/09/17 carvediloL [Coreg*] 12.5 mg PO DAILY #30 tab 03/09/17 levoFLOXacin [Levaquin*] 500 mg PO DAILY #7 tab 03/09/17 - Past Medical/Surgical History Diabetic: No -: GERD -: Hyperlipidemia -: HTN -: CKD -: Cholecystectomy -: - Social History Smoking Status: Never smoker Alcohol use: No CD- Drugs: No Caffeine use: Yes Review of Systems 10-point ROS is otherwise unremarkable Musculoskeletal: Hand Pain, Leg Pain, As per HPI Physical Examination - Physical Exam General: Alert, In no apparent distress, Oriented x3 HEENT: Atraumatic, Normocephalic, PERRLA Neck: Supple, 2+ carotid pulse no bruit Respiratory: Clear to auscultation bilaterally, Normal air movement, Diminished Cardiovascular: No edema, Normal pulses, Regular rate/rhythm Gastrointestinal: Normal bowel sounds, No ascites, No tenderness, No masses Musculoskeletal: No clubbing, Tenderness Integumentary: No rashes, No breakdown - Studies Laboratory Data (last 24 hrs) 10/17/19 13:13: Sodium 138, Potassium 4.4, BUN 57 H, Creatinine 3.00 H, Glucose 85, Magnesium 2.4, Total Bilirubin 0.2, AST 20, ALT 22, Alkaline Phosphatase 146 H 10/17/19 12:23: PT 10.8, INR 0.91 10/17/19 12:23: WBC 6.2, Hgb 8.9 L, Hct 26.7 L, Plt Count 198 Imagings Data: Report Status: Signed EXAM DESCRIPTION: RAD - Chest Single View - 10/17/2019 12:04 pm CLINICAL HISTORY: CHEST PAIN Chest pain. COMPARISON: Chest Single View dated 03/05/2017; Chest Single View dated 2016; CHEST SINGLE VIEW dated 05/13/2008; CHEST SINGLE VIEW dated 04/24/2008 FINDINGS: Portable technique limits examination quality. Mild interstitial pulmonary edema seen. Heart is moderately enlarged in size. No displaced fractures.Tortuous thoracic aorta. IMPRESSION: Mild CHF. Dictated By: Vijay Amaya MD 10/17/19 1223 Signed By: Vijay Amaya MD 10/17/19 1224 EXAM DESCRIPTION: RAD - Elbow Left 3 View - 10/17/2019 1:29 pm CLINICAL HISTORY: PAIN COMPARISON: Knee Left 3 View dated 10/17/2019; Chest Single View dated 2018 FINDINGS: The bones are osteopenic. No acute fracture is seen. Dictated By: Vijay Amaya MD 10/17/19 1337 Signed By: Vijay Amaya MD 10/17/19 3109 EXAM DESCRIPTION: RAD - Knee Left 3 View - 10/17/2019 1:32 pm CLINICAL HISTORY: PAIN COMPARISON: Knee Left 3 View dated 03/05/2017 FINDINGS: Severe tricompartmental osteoarthritis is present. A small suprapatellar joint effusion is seen. No acute fracture demonstrated. Large distal femoral bone infarct noted. Dictated By: Vijay Amaya MD 10/17/19 5944 Signed By: Vijay Amaya MD 10/17/19 9239 Assessment and Plan - Plan Ms. Olson is 78y/o female presented with pain. #Generalized Pain- musculoskeletal pain due to mechanical fall. Xrays with no evidence of fracture. - pain control with tramadol -monitor closely -Mechanical fall, patient uses a wheel chair. -PT/OT -Elevated alk phos- possibly related to severe bone disease noted on Xrays. check ggt to rule hepatic etiology # CKD IV- unknown baseline cr. -BUN/Cr noted -Avoid nephrotoxins. -trend cr. -will obtain retroperitoneal US to assess renal status -check UA #Hypertension- resume antihypertensives -monitor BP #Anemia- normocytic anemia. cw ACD - likely due to CKD -Trend H&H and transfuse if H&H is less than 7 #Home medications not updated yet. nursing to contact pharmacy for correct list. DVT ppx- SCD patient is full code Disposition- dc once pain is controlled Plan to discharge in: 24 Hours - Advance Directives Does patient have a Living Will: Yes Does patient have a Durable POA for Healthcare: Yes - Code Status/Comfort Care Code Status Assessed: Yes Code Status: Full Code
[2019-10-17] MEDS ORDERED: ONDANSETRON 4 MG/2 ML VIAL IV PRN ×2 (15:17→17:20)
[2019-10-17] MEDS ORDERED: ACETAMINOPHEN 500 MG TAB PO PRN (15:17)
[2019-10-17 17:26] VITALS: BMI 34.5
[2019-10-17] MEDS: TRAMADOL HCL 50 MG TAB PO PRN (18:14)
[2019-10-17] MEDS: ACETAMINOPHEN 500 MG TAB PO PRN (20:00)
--- NOTE | 2019-10-17 20:22 | RAD REPORT ---
EXAM DESCRIPTION: US - Renal Ultrasound-Complete - 10/17/2019 7:39 pm CLINICAL HISTORY: . Chronic renal disease COMPARISON: 2017 cat scan FINDINGS: Evaluation is limited secondary to body habitus The right kidney measures 11 cm with a normal echotexture. The patient's known right renal cysts were not well visualized on this exam The left kidney measures 11 cm with a normal echotexture. Hydronephrosis is not seen. No gross abnormality of the bladder IMPRESSION: No significant abnormality is displayed
[2019-10-17] MEDS: MELATONIN 3 MG TABLET PO PRN (22:22)
[2019-10-18] MEDS: TRAMADOL HCL 50 MG TAB PO PRN ×3 (00:31→14:20)
[2019-10-18] MEDS: ACETAMINOPHEN 500 MG TAB PO PRN ×2 (03:39→20:28)
[2019-10-18 06:09] LABS: Basophils % 0.4 % (0-1.3); Hematocrit 24.8 % (36.0-45.0); Lymphocytes % 38.7 % (15.3-44.8); MPV 8.2 fL (7.6-11.3); RBC Red Blood Cell Count 3.03 M/uL (3.86-4.86)
[2019-10-18 06:15] LABS: Magnesium 2.3 mg/dL (1.8-2.4); Potassium 4.8 mmol/L (3.5-5.1)
[2019-10-18 07:45] VITALS: O2SAT 98
--- NOTE | 2019-10-18 15:14 | RAD REPORT ---
EXAM DESCRIPTION: RAD - Shoulder Left 2 View - 10/18/2019 2:55 pm CLINICAL HISTORY: Left shoulder pain COMPARISON: Portable chest February 2017 TECHNIQUE: Internal and external rotation views of the left shoulder were obtained as a portable exa mination. FINDINGS: Assessment is limited due to the portable technique, body habitus and positioning. No fracture is identifiable. No dislocation of the humeral head. Degenerative changes are present christiano ng greater tuberosity as well on the undersurface of the acromion. AC joint spurring is not clearly s een. Positioning is very limited regarding the AC joint. Acromial humeral joint space is likely prese nt. No pathologic bone process. IMPRESSION: Limited left shoulder examination showing no gross fracture deformity and no dislocation . Humeral head degenerative change as well as acromiohumeral and glenohumeral joint space narrowing.
--- NOTE | 2019-10-18 16:00 | ECHO ---
HEIGHT: 5 ft 4 in WEIGHT: 189 lb 0 oz DATE OF STUDY: 10/18/[address]: Brad Zarate 2-DIMENSIONAL: YES M.MODE: YES DOPPLER: YES COLOR FLOW: YES TDS: NO PORTABLE: NO DEFINITY: NO BUBBLE STUDY: NO DIAGNOSIS: TRANISENT ISCHEMIC ATTACK CARDIAC HISTORY: CATHERIZATION: NO SURGERY: NO PROSTHETIC VALVE: NO PACEMAKER: NO MEASUREMENTS (cm) DIASTOLIC (NORMALS) SYSTOLIC (NORMALS) IVSd 1.1 (0.6-1.2) LA Diam 4.4 (1.9-4.0) LVEF 57% LVIDd 4.6 (3.5-5.7) LVIDs 3.2 (2.0-3.5) %FS 30% LVPWd 1.2 (0.6-1.2) Ao Diam 3.1 (2.0-3.7) 2 DIMENSIONAL ASSESSMENT: RIGHT ATRIUM: NORMAL LEFT ATRIUM: DILATED RIGHT VENTRICLE: NORMAL LEFT VENTRICLE: NORMAL TRICUSPID VALVE: NORMAL MITRAL VALVE: NORMAL PULMONIC VALVE: NORMAL AORTIC VALVE: SCLEROSIS PERICARDIAL EFFUSION: NONE AORTIC ROOT: NORMAL LEFT VENTRICULAR WALL MOTION: NORMAL DOPPLER/COLOR FLOW: MILD TRICUSPID REGURGITATION. COMMENTS: MILD TRICUSPID REGURGITATION. NORMAL LEFT VENTRICULAR SIZE AND FUNCTION. AORTIC SCLEROSIS WITH NO STENOSIS. NO VEGETATION. NO THROMBUS. TECHNOLOGIST: Tonio BILL
[2019-10-18] MEDS: MELATONIN 3 MG TABLET PO PRN (20:28)
--- NOTE | 2019-10-18 22:03 | PN ---
Date of Progress Note: 10/18/2019 Subjective: Patient is seen and examined. Chart reviewed and case discussed with RN and Dr. Laura stringer Patient is still complaining of significant amount of pain including her shoulder. Code Status: Full. Medications: List reviewed. Physical Examination: Vital Signs: Temperature 97.6, heart rate 59, blood pressure 96/54, respirations 18, O2 of 97% on ro om air. General: Awake, alert and oriented x3. Elderly female, obese, BMI 32, in mild distress due to pain. CV: S1, S2. Regular rate and rhythm. Peripheral pulses present. Respiratory: Moving air well bilaterally. No wheezing or stridor. No use of accessory muscles. Gastrointestinal: Abdomen is soft, nontender, nondistended. Positive bowel sounds. Extremities: No clubbing, cyanosis, or edema. Neurologic: Nonfocal. Musculoskeletal: Tenderness to palpation of the left shoulder. Laboratory Data: Sodium 138, potassium 4.8, chloride 107, CO2 of 24, BUN 57, creatinine 3.03, glucos e 85, calcium 9.4, magnesium 2.3. WBC 5.2, H and H of 8.3 and 24.8, platelets 181, neutrophils 45%. Shoulder x-ray personally reviewed shows no gross fracture, deformity, or dislocation. Humeral head degenerative changes as well as acromiohumeral and glenohumeral joint space narrowing. Echocardiogr am, EF of 57%, mild tricuspid regurg, aortic sclerosis with no stenosis, no vegetation or thrombus. Assessment: An 78-year-old female with: 1.Generalized pain likely musculoskeletal pain due to mechanical fall. No evidence of fracture. [facility] x-ray, 2-view was also obtained today. We will continue pain control with tramadol. Patient still does not work with PT yet. 2.Elevated alkaline phosphatase, possible bone disease. GGT is pending to rule out hepatic etiology . 3.Chronic kidney disease, stage 4, unknown baseline creatinine. We will continue to monitor. Avoid nephrotoxins. Renal ultrasound is negative. 4.Essential hypertension. We will continue medications. 5.Normocytic anemia. Patient does have chronic kidney disease, likely anemia of chronic disease. W e will continue to monitor hemoglobin and transfuse as needed. 6.Deep venous thrombosis prophylaxis, SCDs. Plan: Complete PT eval. Patient will likely be discharged in a.m. Consider outpatient Nephrology f maura. /RICHI Voice ID: [id number] Report ID: [id number]
[2019-10-19] MEDS: ACETAMINOPHEN 500 MG TAB PO PRN (04:09)
[2019-10-19 05:27] LABS: Absolute Lymphocytes (CBC) 2.2 K/uL (0.7-4.9); Basophils % 0.4 % (0-1.3); Hematocrit 23.5 % (36.0-45.0); Lymphocytes % 39.7 % (15.3-44.8); MPV 8.4 fL (7.6-11.3); RBC Red Blood Cell Count 2.92 M/uL (3.86-4.86)
[2019-10-19 05:40] LABS: Potassium 4.8 mmol/L (3.5-5.1)
[2019-10-19 07:56] VITALS: BP 128/61; TEMP 97.5
--- NOTE | 2019-10-20 01:50 | DS ---
Date of Discharge: 10/19/2019 Admitting Diagnoses: 1.Generalized pain. 2.Chronic kidney disease stage 4. 3.Essential hypertension. 4.Normocytic anemia. 5.Obesity, BMI 32. Discharge Diagnoses: 1.Generalized pain, likely secondary to musculoskeletal pain from mechanical fall. 2.Mechanical fall. 3.Elevated alkaline phosphatase. 4.Chronic kidney disease stage 4, unknown baseline. Kidney function, improving. 5.Essential hypertension, stable. 6.Normocytic anemia, stable, likely due to anemia of chronic disease. 7.Obesity, BMI 32. 8.Femur bone infarct, chronic. Hospital Course: Patient is an 78-year-old female who came into the ER after a fall. Patient has be en evaluated at a different ER facility and has been discharged, however came to [facility] for furth er evaluation. Patient had pain all over her left side after a mechanical fall. She did not hit her head or have any loss of consciousness. There was no seizure-type episode. X-rays were done to rul e out any fracture including shoulder, knee, elbow, which were negative. Renal ultrasound did not sh ow any acute changes. Patient did have a bone infarct on the left femur. This was discussed with [facility] orthopedic surgeon, Dr. Gutierrez station mechanic. He recommended an outpatient followup, it was likely ondina y chronic. He needs the patient to follow up with him at his office. Patient has been seen by him p reviously. The patient was given pain medications to control her pain. She is evaluated with physic al therapy and did well. Chest x-ray showed some mild CHF. Her echocardiogram was done, showed norm al ejection fraction 57%, showed aortic sclerosis with no stenosis. Patient was given some Lasix ove rall did well. Her kidney function was elevated, however, she does have baseline chronic kidney dise ase. Her baseline creatinine, however, is unknown. Kidney function did improve to 2.81. Patient's hemoglobin remained stable. She was then cleared for discharge. She was ambulating well. No furthe r episodes of fall. Followup: She is to follow up with primary care physician in 2-3 days. Follow up with orthopedic stearns rgeon, Dr. Gutierrez, in 2 weeks. Diet: Heart healthy. Activity: Fall precautions. Ambulate with assist. Medications: As per medication reconciliation list. Patient will have a 72-hour worth of tramadol f or acute pain control. No driving or operating heavy machinery while on narcotics. Physical Examination: General: Awake, alert, and oriented x3, elderly female. CV: S1, S2. Respiratory: Moving air well bilaterally. No wheezing. Gastrointestinal: Abdomen is soft, nontender, nondistended. Positive bowel sounds. Extremities: No clubbing, cyanosis, or edema. Neurologic: Nonfocal. SA/MODL Voice ID: [id number] Report ID: [id number]
== END 2019-10-19 08:05 | disposition home or self-care (01) ==
LOC: ER 11:03 → ERHOLD 15:17 → 4TH 16:09
PROVIDERS: ADMIT Hospitalist; ATTEND Hospitalist
DX: R52 Pain, unspecified (principal); W06.XXXA Fall from bed, initial encounter; Y92.003 Bedroom of unspecified non-institutional (private) residence as the place of occurrence of the external cause; K21.9 Gastro-esophageal reflux disease without esophagitis; E78.5 Hyperlipidemia, unspecified; I12.9 Hypertensive chronic kidney disease with stage 1 through stage 4 chronic kidney disease, or unspecified chronic kidney disease; N18.4 Chronic kidney disease, stage 4 (severe); R79.89 Other specified abnormal findings of blood chemistry; D64.9 Anemia, unspecified; E66.9 Obesity, unspecified; Z68.32 Body mass index [BMI] 32.0-32.9, adult; R93.6 Abnormal findings on diagnostic imaging of limbs; Z88.0 Allergy status to penicillin
CPT/HCPCS: 93005; 93306; 85025 ×3; 80048 ×3; 82977; 36415 ×3; 83735 ×2; 85610; 82947 ×4; 80076; 84484; 83880; 71045; 73080; 73030; 73562; 76770; 97112; 97116; 97161; 97166; 97530; 96375; 96374; 99285; J2405; G0378 ×4

== ENCOUNTER 2019-10-23 14:14 | Observation (INO) | payer OTHER ==
--- OUTSIDE RECORDS SUMMARY | 2019-10-23 14:17 | XMS REPORT ---
:1940 [facility] Address [address] [place] [address] [address] [place] [address] Care Team Providers Name Role Phone Unavailable [...] - CT 2019-02-19 FAX: Reyes Flores Jr [phone] [place]: St: HEAD/BRAIN 11:19:00 REG W/O CONT Name: PERLITA SANCHEZ [facility] : 1940 Age/S: 78/F [address] Unit: [id number] Loc: [place] [address] Phys: Reyes Dominguez Jr, MD Acct: [id number] Dis Date: Status: REG CLI PHONE #: [phone] Exam Date: 02/19/2019 1055 FAX #: [phone] Reason: PAIN EXAMS: CPT CODE: [id number] CT HEAD/BRAIN W/O CONT [id number] EXAM: - CT HEAD/BRAIN W/O CONT Location [...] Dominguez Jr Technologist: NUPUR STOLL Trnscrd Dt/Tm: ([id number]) [email or web address] Orig Print D/T: S: 02/19/2019 ( 1122 PAGE 1 Signed Report
[2019-10-23 15:02] LABS: Protime INR 1.07
[2019-10-23 15:03] LABS: Absolute Lymphocytes (CBC) 2.7 K/uL (0.7-4.9); Basophils % 0.7 % (0-1.3); Hematocrit 27.9 % (36.0-45.0); Lymphocytes % 41.2 % (15.3-44.8); MPV 8.7 fL (7.6-11.3); RBC Red Blood Cell Count 3.46 M/uL (3.86-4.86)
[2019-10-23 15:30] LABS: ALT/SGPT 31 U/L (12-78); AST/SGOT 26 U/L (15-37); Albumin 3.8 g/dL (3.4-5.0); Alkaline Phosphatase 156 U/L (45-117); BUN Blood Urea Nitrogen 67 mg/dL (7-18); Bicarbonate 22 mmol/L (21-32); Bilirubin Direct 0.1 mg/dL (0-0.2); Bilirubin Total 0.3 mg/dL (0.2-1.0); Glucose Level 82 mg/dL (74-106); Lipase 144 U/L (73-393); Magnesium 2.3 mg/dL (1.8-2.4); NT PRO-BNP 186 pg/mL (<450); Potassium 4.1 mmol/L (3.5-5.1); Protein, Total 8.2 g/dL (6.4-8.2); Sodium Level 137 mmol/L (136-145); Troponin (Emerg Dept Use Only) < 0.02 ng/mL (0.0-0.045)
--- NOTE | 2019-10-23 16:16 | RAD REPORT ---
EXAM DESCRIPTION: RAD - Chest Single View - 10/23/2019 3:12 pm CLINICAL HISTORY: Abdominal pain COMPARISON: October 17 TECHNIQUE: AP portable chest image was obtained 1505 hour . FINDINGS: Lung volumes are low. Interstitial pattern is not substantially different. Mild cardiomega ly and moderate vascular engorgement present similar to comparison. No peripheral mass or consolidati on. Trachea is midline. No measurable pleural effusion and no pneumothorax. No acute bony abnormality se en. No acute aortic findings suspected. IMPRESSION: Heart vasculature are prominent but not substantially different. No peripheral mass or c onsolidation. Mild CHF/ volume overload suspected.
--- NOTE | 2019-10-23 16:19 | EKG ---
Test Date: 2019-10-23 Test Time: 14:26:03 Machine Pecan Picker: DEBORAH MEASUREMENT RESULTS: Intervals: Rate: 59 NH: 206 QRSD: 118 QT: 412 QTc: 407 [place]: P: 55 NH: 206 QRS: -48 T: 19 INTERPRETIVE STATEMENTS: Sinus bradycardia Left anterior fascicular block Abnormal ECG Compared to ECG 10/17/2019 11:12:22 Left anterior fascicular block now present First degree AV block no longer present Left-axis deviation no longer present Left ventricular hypertrophy no longer present Electronically Signed On 10-23-19 16:18:59 ROLL SLICING MACHINE TENDER by Thien Avendaño
[2019-10-23] MEDS ORDERED: MORPHINE 2 MG/ML SYR ONE (16:30)
[2019-10-23] MEDS ORDERED: ONDANSETRON 4 MG/2 ML VIAL ONE (16:30)
--- NOTE | 2019-10-23 16:37 | RAD REPORT ---
EXAM DESCRIPTION: CT - Abdomen Pelvis Wo Contrast - 10/23/2019 4:08 pm CLINICAL HISTORY: No BM in 7 days;Abd pain Abdominal pain, decreased bowel movement, rectal bleeding COMPARISON: Stone Protocol dated 08/29/2017; Abdomen Pelvis Wo Contrast dated 12/28/2016 TECHNIQUE: Axial [address] imaging of the abdomen and pelvis was performed without IV contrast. No IV contrast was given because of allergy, abnormal renal function, patient refusal or physician re quest. No oral contrast. All CT scans are performed using dose optimization technique as appropriate and may include automated exposure control or mA/KV adjustment according to patient size. FINDINGS: No suspicious findings in the lung bases. The liver, spleen and pancreas show no suspicious findings on non-contrast imaging. Cholecystectomy c lips are present. No biliary tree dilatation. No hydronephrosis or suspicious renal mass. Bilateral renal cysts are present. Right cysts have proba kalyn increased in size but continued to show benign characteristics on noncontrast imaging. No signifi cant adrenal finding. Isodense renal masses and pyelonephritis cannot be excluded in the absence of I V contrast. The urinary bladder is without significant finding. Uterus and ovaries show no suspicious findings. Small hiatal hernia is present. No acute stomach finding. Gil of the antrum or prominent but not ad equately assessed on a noncontrast study. No history to indicate upper abdominal pain. There is a lar ge amount of stool present dilating the rectum. Moderate stool volume seen elsewhere in the colon. No focal colon wall thickening or mass. No free air, free fluid or inflammatory stranding. No hernia, mass or bulky lymphadenopathy. Disc and bony degenerative changes are present. No acute findings seen. Vascular calcifications are present. IMPRESSION: Large amount of stool present dilating the rectum. Moderate stool volume elsewhere in th e colon. Gil of the gastric antrum are prominent but not adequately assessed on a noncontrast study. Follow- up imaging could be obtained if the patient has upper abdominal symptoms. Full assessment is limited is the absence of IV contrast.
--- NOTE | 2019-10-23 17:09 | ER ---
Nurse's Notes [facility] Name: Daksha Olson Age: 78 yrs Sex: Female : 1940 Arrival Date: 10/23/2019 Time: 14:19 Bed 6 Private MD: Diagnosis: Abdominal pain, constipation, acute on chronic renal failure Presentation: 10/23 14:12 Acuity: MEÑO 3 sv 14:12 Presenting complaint: EMS states: abd pain, headache, rectal bleeding (spotting noted sv in underwear) noted after attempting to have a BM. Pt took a pain pill before EMS getting to her. BP 130/70. No BM x 1 week. Transition of care: patient was not received from another setting of care. Onset of symptoms was October 16, 2019. Care prior to arrival: None. 14:12 Method Of Arrival: EMS: [facility] sv 14:17 Risk Assessment: Do you want to hurt yourself or someone else? Patient reports no sv desire to harm self or others. Initial Sepsis Screen: Does the patient meet any 2 criteria? No. Patient's initial sepsis screen is negative. Does the patient have a suspected source of infection? No. Patient's initial sepsis screen is negative. Triage Assessment: 14:20 General: Appears in no apparent distress. uncomfortable, obese, well developed, sv Behavior is calm, cooperative, appropriate for age. Pain: Complains of pain in abdomen Pain currently is 8 out of 10 on a pain scale. Quality of pain is described as tender, Pain began a week ago Is intermittent. Neuro: Level of Consciousness is awake, alert, obeys commands, Oriented to person, place, time, situation. Respiratory: Airway is patent Respiratory effort is even, unlabored, Respiratory pattern is regular, symmetrical. GI: Abdomen is round obese, Abd is soft X 4 quads Abdomen is tender to palpation X 4 quads. Reports lower abdominal pain, upper abdominal pain, constipation. Derm: Skin is normal. Historical: - Allergies: 15:58 PENICILLINS; sv - PMHx: 15:58 CHF; Chronic pain; Diabetes - NIDDM; GERD; High Cholesterol; Hypertension; sv - PSHx: 15:58 None; sv - Immunization history:: Adult Immunizations up to date. - Social history:: Smoking status: Patient/guardian denies using tobacco. - Ebola Screening: : No symptoms or risks identified at this time. Screenin:08 Abuse screen: Denies threats or abuse. Denies injuries from another. Nutritional sv screening: No deficits noted. Tuberculosis screening: No symptoms or risk factors identified. Fall Risk None identified. Assessment: 16:11 Reassessment: Patient appears in no apparent distress at this time. No changes from sv previously documented assessment. Patient and/or family updated on plan of care and expected duration. Pain level reassessed. Patient is alert, oriented x 3, equal unlabored respirations, skin warm/dry/pink. 16:25 Reassessment: Patient appears in no apparent distress at this time. No changes from sv previously documented assessment. Patient and/or family updated on plan of care and expected duration. Pain level reassessed. Patient is alert, oriented x 3, equal unlabored respirations, skin warm/dry/pink. Pt requesting pain medication, informed Dr Briseno. 17:24 Reassessment: Patient appears in no apparent distress at this time. Patient and/or sv family updated on plan of care and expected duration. Pain level reassessed. Patient is alert, oriented x 3, equal unlabored respirations, skin warm/dry/pink. Dr Jorge at the bedside, awaiting admission orders. Patient states feeling better. Patient states symptoms have improved. 17:57 Reassessment: Attempted to call report, nurse to call back. sv 18:14 Reassessment: Attempted to call report, nurse to call back. sv Vital Signs: 14:17 BP 121 / 62; Pulse 59; Resp 18; Temp 98.4; Pulse Ox 100% ; Pain 8/10; sv 15:54 BP 111 / 85; Pulse 67; Resp 13; Pulse Ox 100% ; sv 16:26 BP 121 / 69; Pulse 65; Resp 15; Pulse Ox 97% ; sv 16:58 Pain 3/10; sv 17:03 Pulse 61; Resp 15; Pulse Ox 100% ; sv 17:57 BP 118 / 77; Pulse 65; Resp 18; Pulse Ox 99% ; sv ED Course: 14:15 Patient has correct armband on for positive identification. Placed in gown. Bed in low sv position. Call light in reach. Side rails up X2. secured entrance monitor on. Pulse ox on. NIBP on. Door closed. Warm blanket given. Head of bed elevated. 14:19 Patient arrived in ED. sv 14:19 Dinora Levin, KONSTANTIN is Primary Nurse. sv 14:20 Arm band placed on. sv 14:22 Hernan Briseno MD is Attending Physician. kdr 14:23 Triage completed. sv 14:36 Radiology exam delayed due to lab results not completed at this time. (BUN/Creatinine) vm2 IV insertion attempt and/or patient not having appropriate IV at this time. 14:40 Initial lab(s) drawn, by me, sent to lab. T\T\S collected, blood band applied to patient. sv Inserted saline lock: 22 gauge in right forearm, using aseptic technique. ,using aseptic technique. diffusics Blood collected. Flushed right forearm with 5 ml normal saline. 15:13 XRAY Chest (1 view) In Process Unspecified. EDMS 16:09 Abdomen In Process Unspecified. EDMS 16:11 Patient moved back from CT. sv 17:06 Phong Jorge is Hospitalizing Provider. kdr 18:06 No provider procedures requiring assistance completed. Patient admitted, IV remains in sv place. intact. Administered Medications: 16:30 Drug: Zofran 4 mg Route: IVP; Site: right forearm; sv 16:58 Follow up: Response: No adverse reaction sv 16:32 Drug: morphine 2 mg Route: IVP; Site: right forearm; sv 16:58 Follow up: Pain 3/10 Adult; Response: No adverse reaction; Pain is decreased; RASS: sv Alert and Calm (0) Outcome: 17:07 Decision to Hospitalize by Provider. kdr 18:21 Admitted to Tele accompanied by tech, via stretcher, room 430, with chart, Report sv called to ALMA DELIA RN 18:21 Condition: stable 18:21 Instructed on the need for admit. 18:33 Patient left the ED. sv Signatures: Dispatcher [employer] EDCO Dinora Levin RN RN sv Hernan Briseno MD MD [facility] Samantha Gayle vm2
--- NOTE | 2019-10-23 17:10 | EDPHYS ---
Physician Documentation [facility] Name: Daksha Olson Age: 78 yrs Sex: Female : 1940 Arrival Date: 10/23/2019 Time: 14:19 Bed 6 Private MD: ED Physician Hernan Briseno HPI: 10/23 14:39 This 78 yrs old Black Female presents to ER via Unassigned with complaints of Abdominal kdr Pain, Chest pain and rectal bleeding. 14:39 The patient presents with abdominal pain that is diffuse, abdominal distention that is kdr diffuse. Onset: The symptoms/episode began/occurred gradually, 1 week(s) ago. The symptoms do not radiate. Associated signs and symptoms: Pertinent positives: nausea, vomiting, and diarrhea, chest pain, vaginal discharge, Abdominal pain. The symptoms are described as achy, burning, constant, crampy, steady, vague, waxing/waning. Modifying factors: The symptoms are alleviated by nothing. Severity of pain: At its worst the pain was moderate severe incapacitating in the emergency department the pain is actually worse. The patient has not experienced similar symptoms in the past. The patient has been recently seen by a physician: The patient has been recently been admitted at [facility], was discharged last week. Historical: - Allergies: 15:58 PENICILLINS; sv - PMHx: 15:58 CHF; Chronic pain; Diabetes - NIDDM; GERD; High Cholesterol; Hypertension; sv - PSHx: 15:58 None; sv - Immunization history:: Adult Immunizations up to date. - Social history:: Smoking status: Patient/guardian denies using tobacco. - Ebola Screening: : No symptoms or risks identified at this time. ROS: 14:39 Constitutional: Negative for fever, chills, and weight loss, Eyes: Negative for injury, kdr pain, redness, and discharge, Neck: Negative for injury, pain, and swelling, Cardiovascular: Negative for chest pain, palpitations, and edema, Respiratory: Negative for shortness of breath, cough, wheezing, and pleuritic chest pain, Back: Negative for injury and pain, : Negative for injury, bleeding, discharge, and swelling, MS/Extremity: Negative for injury and deformity, Skin: Negative for injury, rash, and discoloration, Neuro: Negative for headache, weakness, numbness, tingling, and seizure activity. Psych: Negative for depression, anxiety, suicide ideation, homicidal ideation, and hallucinations, Allergy/Immunology: Negative for hives, rash, and allergies, Endocrine: Negative for neck swelling, polydipsia, polyuria, polyphagia, and marked weight changes, Hematologic/Lymphatic: Negative for swollen nodes, abnormal bleeding, and unusual bruising. 14:39 Abdomen/GI: Positive for abdominal pain, nausea and vomiting, rectal bleeding, Negative for Exam: 14:39 Constitutional: This is a well developed, well nourished patient who is awake, alert, kdr and in no acute distress. Head/Face: Normocephalic, atraumatic. Eyes: Pupils equal round and reactive to light, extra-ocular motions intact. Lids and lashes normal. Conjunctiva and sclera are non-icteric and not injected. Cornea within normal limits. Periorbital areas with no swelling, redness, or edema. Neck: Trachea midline, no thyromegaly or masses palpated, and no cervical lymphadenopathy. Supple, full range of motion without nuchal rigidity, or vertebral point tenderness. No Meningismus. Chest/axilla: Normal chest wall appearance and motion. Nontender with no deformity. No lesions are appreciated. Respiratory: Lungs have equal breath sounds bilaterally, clear to auscultation and percussion. No rales, rhonchi or wheezes noted. No increased work of breathing, no retractions or nasal flaring. Back: No spinal tenderness. No costovertebral tenderness. Full range of motion. Skin: Warm, dry with normal turgor. Normal color with no rashes, no lesions, and no evidence of cellulitis. MS/ Extremity: Pulses equal, no cyanosis. Neurovascular intact. Full, normal range of motion. Neuro: Awake and alert, GCS 15, oriented to person, place, time, and situation. Cranial nerves II-XII grossly intact. Motor strength 5/5 in all extremities. Sensory grossly intact. Cerebellar exam normal. Normal gait. Psych: Awake, alert, with orientation to person, place and time. Behavior, mood, and affect are within normal limits. 14:39 Chest/axilla: Inspection: normal, Palpation: is normal. 14:39 Cardiovascular: Rate: normal, Rhythm: regular, Pulses: no pulse deficits are appreciated. Vital Signs: 14:17 BP 121 / 62; Pulse 59; Resp 18; Temp 98.4; Pulse Ox 100% ; Pain 8/10; sv 15:54 BP 111 / 85; Pulse 67; Resp 13; Pulse Ox 100% ; sv 16:26 BP 121 / 69; Pulse 65; Resp 15; Pulse Ox 97% ; sv 16:58 Pain 3/10; sv 17:03 Pulse 61; Resp 15; Pulse Ox 100% ; sv 17:57 BP 118 / 77; Pulse 65; Resp 18; Pulse Ox 99% ; sv MDM: 17:05 Data reviewed: vital signs, nurses notes, lab test result(s), EKG, radiologic studies. kdr Counseling: I had a detailed discussion with the patient and/or guardian regarding: the historical points, exam findings, and any diagnostic results supporting the discharge/admit diagnosis, lab results, radiology results, the need for further work-up and treatment in the hospital. 17:07 Patient medically screened. kdr 10/23 14:23 Order name: Basic Metabolic Panel; Complete Time: 16:19 kdr 10/23 14:23 Order name: CBC with Diff kdr 10/23 14:23 Order name: Creatinine for Radiology; Complete Time: 16:19 kdr 10/23 14:23 Order name: Hepatic Function; Complete Time: 16:19 kdr 10/23 14:23 Order name: Lipase; Complete Time: 16:19 kdr 10/23 14:23 Order name: Magnesium; Complete Time: 16:19 kdr 10/23 14:23 Order name: NT PRO-BNP; Complete Time: 16:19 kdr 10/23 14:23 Order name: PT-INR kdr 10/23 14:23 Order name: Troponin (emerg Dept Use Only); Complete Time: 16:19 kdr 10/23 14:23 Order name: XRAY Chest (1 view); Complete Time: 16:56 kdr 10/23 14:30 Order name: Type And Screen; Complete Time: 16:19 kdr 10/23 15:57 Order name: Occult Blood--Ancillary; Complete Time: 16:19 sv 10/23 15:59 Order name: Abdomen ; Complete Time: 16:56 EDMS 10/23 14:23 Order name: IV Saline Lock; Complete Time: 15:55 kdr 10/23 14:23 Order name: Labs collected and sent; Complete Time: 15:55 kdr 10/23 14:23 Order name: EKG; Complete Time: 14:24 kdr 10/23 14:23 Order name: Cardiac monitoring; Complete Time: 15:55 kdr 10/23 14:23 Order name: EKG - Nurse/Tech; Complete Time: 15:55 kdr 10/23 14:23 Order name: O2 Per Protocol; Complete Time: 15:55 kdr 10/23 14:23 Order name: O2 Sat Monitoring; Complete Time: 15:55 kdr Administered Medications: 16:30 Drug: Zofran 4 mg Route: IVP; Site: right forearm; sv 16:58 Follow up: Response: No adverse reaction sv 16:32 Drug: morphine 2 mg Route: IVP; Site: right forearm; sv 16:58 Follow up: Pain 3/10 Adult; Response: No adverse reaction; Pain is decreased; RASS: sv Alert and Calm (0) Disposition: 10/23/19 17:07 Hospitalization ordered by Phong Jorge for Observation. Preliminary diagnosis is Abdominal pain, constipation, acute on chronic renal failure. - Bed requested for Telemetry/MedSurg (observation). - Status is Observation. sv - Condition is Fair. - Problem is an ongoing problem. - Symptoms have worsened. UTI on Admission? No Signatures: Dispatcher [employer] EDPA Dinora Levin RN RN Hernan Briseno MD MD [facility] Corrections: (The following items were deleted from the chart) 15:59 14:31 Abdomen Pelvis W Con+CT.RAD.BRZ ordered. [facility] 17:59 17:07 Hospitalization Ordered by Phong Jorge for Observation. Preliminary diagnosis sv is Abdominal pain, constipation, acute on chronic renal failure. Bed requested for Telemetry/MedSurg (observation). Status is Observation. Condition is Fair. Problem is an ongoing problem. Symptoms have worsened. UTI on Admission? No. kdr 18:33 17:59 10/23/2019 17:07 Hospitalization Ordered by Phong Jorge for Observation. sv Preliminary diagnosis is Abdominal pain, constipation, acute on chronic renal failure. Bed requested for Telemetry/MedSurg (observation). Status is Observation. Condition is Fair. Problem is an ongoing problem. Symptoms have worsened. UTI on Admission? No. sv
--- NOTE | 2019-10-23 17:50 | P.HP ---
Certification for Inpatient Patient admitted to: Observation With expected LOS: <2 Midnights Practitioner: I am a practitioner with admitting privileges, knowledge of patient current condition, hospital course, and medical plan of care. Services: Services provided to patient in accordance with Admission requirements found in Title 42 Section 412.3 of the Code of Federal Regulations Patient History Date of Service: 10/23/19 Reason for admission: Abdominal pain History of Present Illness: 78-year-old woman with a history of chronic kidney disease presented to the emergency department with a complaint of abdominal pain of onset last night. Patient reports having no BM for about 7-8 days and feels bloated. She stated she attempted a bowel movement this morning and saw bright red blood. She therefore called EMS who brought her to the ED for evaluation. CT abdomen and pelvis in the ED demonstrated a high stool burden and dilated rectum from constipation. Her serum creatinine has also increased above baseline suggesting acute renal failure. She was stool Hemoccult-negative. Patient is therefore hospitalized for further management. Allergies Penicillins Allergy (Severe, Verified 03/06/17 09:14) Hives/Rash Home Medications: Allopurinol 100 mg PO DAILY 10/18/19 Amlodipine [Norvasc*] 10 mg PO DAILY 10/18/19 Butalbital/Acetaminophen [Tencon 50-325 mg Tablet] 2 tab PO BIDP PRN 10/18/19 Carvedilol [Coreg] 3.125 mg PO BID 10/18/19 Dicyclomine [Bentyl*] 2 tab PO BID 10/18/19 Famotidine 40 mg PO DAILY 10/18/19 Furosemide [Lasix*] 40 mg PO DAILY 10/18/19 Hydralazine HCl [Apresoline] 100 mg PO TID 10/18/19 Sertraline [Zoloft*] 100 mg PO DAILY 10/18/19 Sodium Bicarbonate 2 tab PO BID 10/18/19 Zolpidem Tartrate [Ambien*] 5 mg PO BEDTIME PRN 10/18/19 traMADol HCL [Ultram*] 50 mg PO Q6H PRN #12 tab 10/18/19 - Past Medical/Surgical History Diabetic: No -: GERD -: Hyperlipidemia -: HTN -: CKD -: Cholecystectomy -: -: Hysterectomy - Family History Mother -: Heart disease Father -: Hypertension - Social History Alcohol use: No CD- Drugs: No Caffeine use: Yes Review of Systems Other: General: No fever, no malaise, no unintentional weight loss. Eyes: No eye discharge, Respiratory: No cough, no shortness of breath. CVS: No chest pain, no palpitation, no lightheadedness. GI: No nausea, no vomit, no diarrhea. Genitourinary: No dysuria, no urinary frequency, no incontinence, no hematuria. Musculoskeletal: No joint pains, or joint swelling, no gait instability. Neurology: No headache, no asymmetric, weakness, no problem with swallowing. Except as documented, all other systems reviewed and negative. Physical Examination - Physical Exam General: Alert, In no apparent distress, Oriented x3 HEENT: Mucous membr. moist/pink Neck: Supple, JVD not distended Respiratory: Clear to auscultation bilaterally, Normal air movement Cardiovascular: No edema, Regular rate/rhythm, Normal S1 S2 Capillary refill: <2 Seconds Gastrointestinal: Normal bowel sounds, Tenderness (Generalized) Musculoskeletal: No swelling Integumentary: No rashes Neurological: Normal speech, Normal strength at 5/5 x4 extr - Studies Laboratory Data (last 24 hrs) 10/23/19 14:40: PT 12.6 H, INR 1.07 10/23/19 14:40: Creatinine 3.13 H 10/23/19 14:40: WBC 6.5 D, Hgb 9.3 L, Hct 27.9 L D, Plt Count 239 D 10/23/19 14:40: Sodium 137, Potassium 4.1, BUN 67 H, Creatinine 3.19 H, Glucose 82, Magnesium 2.3, Total Bilirubin 0.3, AST 26, ALT 31, Alkaline Phosphatase 156 H, Lipase 144 Microbiology Data (last 24 hrs): 10/23/19 15:57 Stool Occult Blood - Final Assessment and Plan - Problems (Diagnosis) (1) Functional constipation Current Visit: Yes Status: Acute (2) Acute kidney injury Onset Date: 03/06/17 Current Visit: No Status: Acute (3) Hypertension Current Visit: No Status: Acute - Plan Place patient under observation. Treat constipation with enemas, oral MiraLax daily. Supportive measures, serial abdominal examination. IV hydration Monitor renal function Reconcile and continue home medications. - Advance Directives Does patient have a Living Will: Yes Does patient have a Durable POA for Healthcare: Yes
[2019-10-23] MEDS ORDERED: ONDANSETRON 4 MG/2 ML VIAL IV PRN (18:22)
[2019-10-23] MEDS ORDERED: POLYETHYL GLY 3350 17 GM/DOSE PO PRN (18:22)
[2019-10-23] MEDS: NA CHLORIDE 0.9% 1,000 ML IV SCH (18:51)
[2019-10-23 18:52] VITALS: BMI 34.5
[2019-10-23] MEDS: FLEET ENEMA ADULT PR SCH (18:58)
[2019-10-23] MEDS: ACETAMINOPHEN 500 MG TAB PO PRN (19:07)
[2019-10-23] MEDS: ZOLPIDEM TARTRATE 5 MG TABLET PO PRN ×2 (21:10→21:27)
[2019-10-24] MEDS: HEPARIN 5000 UNIT/ML 1 ML VIAL SQ SCH ×3 (02:49→18:49)
[2019-10-24] MEDS: NA CHLORIDE 0.9% 1,000 ML IV SCH ×3 (04:00→20:34)
[2019-10-24 06:06] LABS: Magnesium 2.2 mg/dL (1.8-2.4); Potassium 4.4 mmol/L (3.5-5.1)
[2019-10-24 06:07] LABS: Absolute Lymphocytes (CBC) 2.4 K/uL (0.7-4.9); Basophils % 0.3 % (0-1.3); Hematocrit 23.7 % (36.0-45.0); Lymphocytes % 40.1 % (15.3-44.8); MPV 8.4 fL (7.6-11.3); RBC Red Blood Cell Count 2.94 M/uL (3.86-4.86)
[2019-10-24] MEDS: TRAMADOL HCL 50 MG TAB PO PRN ×3 (06:36→23:34)
[2019-10-24] MEDS: FLEET ENEMA ADULT PR SCH (09:23)
--- NOTE | 2019-10-24 13:09 | P.PN ---
Subjective Date of Service: 10/24/19 Chief Complaint: Abdominal pain Nursing staff report multiple small bowel movements after enema yesterday. No blood was seen. She still complaining of abdominal pain. Physical Examination - Vital Signs Temperature: 98.3 F Blood Pressure: 115/63 Pulse: 59 Respirations: 16 Pulse Ox (%): 97 - Physical Exam General: Alert, Mild distress HEENT: Mucous membr. moist/pink Neck: JVD not distended Respiratory: Clear to auscultation bilaterally, Normal air movement Cardiovascular: No edema, Regular rate/rhythm, Normal S1 S2 Gastrointestinal: Normal bowel sounds, Soft and benign, No rebound, No guarding , Tenderness (Lower abdomen) Musculoskeletal: No swelling Neurological: Normal speech - Studies Laboratory Data (last 24 hrs) 10/23/19 14:40: PT 12.6 H, INR 1.07 10/23/19 14:40: Creatinine 3.13 H 10/23/19 14:40: WBC 6.5 D, Hgb 9.3 L, Hct 27.9 L D, Plt Count 239 D 10/23/19 14:40: Sodium 137, Potassium 4.1, BUN 67 H, Creatinine 3.19 H, Glucose 82, Magnesium 2.3, Total Bilirubin 0.3, AST 26, ALT 31, Alkaline Phosphatase 156 H, Lipase 144 Microbiology Data (last 24 hrs): 10/23/19 15:57 Stool Occult Blood - Final Assessment And Plan - Current Problems (Diagnosis) (1) Functional constipation Current Visit: Yes Status: Acute (2) Acute kidney injury Onset Date: 03/06/17 Current Visit: No Status: Acute (3) Hypertension Current Visit: No Status: Acute - Plan Continue constipation treatment with enemas, oral MiraLax daily. Supportive measures, serial abdominal examination. Serum creatinine is improving with IV hydration Monitor renal function.
[2019-10-24 13:23] LABS: Urine Appearance CLEAR; Urine Bilirubin NEGATIVE (NEG); Urine Blood NEGATIVE (NEG); Urine Color YELLOW; Urine Glucose NEGATIVE (NEG); Urine Protein TRACE (NEG); Urine Specific Gravity 1.015 (1.005-1.030); Urine Urobilinogen 0.2 mg/dL (0.2-1.0); Urine pH 5.5 (5.0-7.0)
[2019-10-24 13:33] LABS: Urine Microscopic Reflex ORDER UMIC
[2019-10-24 13:35] LABS: Urine Bacteria 20-50 /HPF (<20); Urine Culture Reflex Order REFLEXED; Urine RBC <5 /HPF (NONE SEEN)
[2019-10-24] MEDS: ZOLPIDEM TARTRATE 5 MG TABLET PO PRN (20:33)
[2019-10-24 23:28] VITALS: O2SAT 100
[2019-10-25] MEDS: NA CHLORIDE 0.9% 1,000 ML IV SCH ×3 (00:22→10:22)
[2019-10-25] MEDS: HEPARIN 5000 UNIT/ML 1 ML VIAL SQ SCH (01:29)
[2019-10-25] MEDS: TRAMADOL HCL 50 MG TAB PO PRN (05:38)
[2019-10-25 06:46] LABS: Absolute Lymphocytes (CBC) 2.4 K/uL (0.7-4.9); Basophils % 0.3 % (0-1.3); Hematocrit 22.3 % (36.0-45.0); Lymphocytes % 42.7 % (15.3-44.8); MPV 8.5 fL (7.6-11.3); RBC Red Blood Cell Count 2.73 M/uL (3.86-4.86)
[2019-10-25] MEDS ORDERED: Levofloxacin 750mg IV 750 MG/150 ML BAG IV SCH (09:00)
[2019-10-25] MEDS: ACETAMINOPHEN 500 MG TAB PO PRN (10:13)
[2019-10-25] MEDS ORDERED: NA CHLORIDE 0.9% 100 ML IV ONE (13:24)
[2019-10-25 16:21] VITALS: BP 147/67; TEMP 98.7
--- NOTE | 2019-10-25 16:33 | P.PN ---
Subjective Date of Service: 10/25/19 Chief Complaint: Abdominal pain Nursing staff report patient have had multiple small bowel movements since yesterday. She denies any abdominal pain today. His hemoglobin has dropped further to 7.4. No blood noted in her stools. She has an baseline history of vitamin B12 anemia. Physical Examination - Vital Signs Temperature: 98.7 F Blood Pressure: 147/67 Pulse: 59 Respirations: 18 Pulse Ox (%): 98 - Physical Exam General: Alert, In no apparent distress HEENT: Mucous membr. moist/pink Neck: Supple, JVD not distended Respiratory: Clear to auscultation bilaterally, Normal air movement Cardiovascular: No edema, Regular rate/rhythm, Normal S1 S2 Gastrointestinal: Soft and benign, Non-distended, No tenderness Musculoskeletal: No swelling Integumentary: No rashes Neurological: Normal speech, Normal strength at 5/5 x4 extr Assessment And Plan - Current Problems (Diagnosis) (1) Functional constipation Current Visit: Yes Status: Acute (2) Acute kidney injury Onset Date: 03/06/17 Current Visit: No Status: Acute (3) Hypertension Current Visit: No Status: Acute - Plan Constipation has resolved. Continue oral MiraLax daily. Transfuse 1 unit PRBC given drop in hemoglobin. Check posttransfusion hemoglobin. Patient is not actively bleeding. Stool is Hemoccult negative. No blood noted in her stools. I suspect dilutional effect of IV fluid contributing to hemoglobin values were are seeing. There has been a corresponding decreasing WBC and platelet counts too with IV fluid. Serum creatinine has significantly improved with IV hydration Monitor renal function and CBC.
--- NOTE | 2019-10-25 16:39 | P.DS ---
Admission Date: 10/23/19 Discharge Date: 10/25/19 Disposition: [facility] HEALTH CARE Discharge Condition: FAIR Reason for Admission: Abdominal pain - Problems (1) Functional constipation Current Visit: Yes Status: Acute (2) Acute kidney injury Onset Date: 03/06/17 Current Visit: No Status: Acute (3) Hypertension Current Visit: No Status: Acute Brief History of Present Illness: 78-year-old woman with a history of chronic kidney disease presented to the emergency department with a complaint of abdominal pain of onset last night. Patient reports having no BM for about 7-8 days and feels bloated. She stated she attempted a bowel movement this morning and saw a small amount of bright red blood. She therefore called EMS who brought her to the ED for evaluation. CT abdomen and pelvis in the ED demonstrated a high stool burden and dilated rectum from constipation. Her serum creatinine has also increased above baseline suggesting acute renal failure. She was stool Hemoccult-negative. Patient was hospitalized for further management. Hospital Course: Her constipation was treated with enemas and oral miralax. She had multiple bowel movements, no blood was seen in her stools. Does a drop in her hemoglobin from 9 to 7.4. This was also associated with a corresponding drop in WBC count and platelet count which could suggest hemodilution effect of IV hydration. Noted patient was stool Hemoccult- negative and not actively bleeding. She was given 1 unit PRBC transfusion. Posttransfusion hemoglobin is up to 9.0 Her serum creatinine was also elevated above baseline on presentation. It improved from 3.07 to 2.33. She is currently for asymptomatic and desires to go home today. No GI is available to evaluate patient for the anemia and the transient GI bleed. Patient is not bleeding actively. I informed Dr. Figueroa who has agreed to see her next week in the office for evaluation. The patient is discharged per her request for outpatient follow with Dr. Figueroa. Vital Signs/Physical Exam: Temp Pulse Resp BP Pulse Ox 98.7 F 59 18 147/67 H 98 10/25/19 16:32 10/25/19 16:32 10/25/19 16:32 10/25/19 16:32 10/25/19 16:32 General: Alert, In no apparent distress, Oriented x3 HEENT: Mucous membr. moist/pink Neck: Supple, JVD not distended Respiratory: Clear to auscultation bilaterally, Normal air movement Cardiovascular: No edema, Regular rate/rhythm, Normal S1 S2 Gastrointestinal: Soft and benign, Non-distended, No tenderness Musculoskeletal: No swelling Integumentary: No rashes Neurological: Normal speech, Normal strength at 5/5 x4 extr Laboratory Data at Discharge: WBC 5.6 K/uL (4.3-10.9) 10/25/19 05:50 Hgb 7.4 g/dL (12.0-15.0) L* 10/25/19 05:50 Hct 22.3 % (36.0-45.0) L 10/25/19 05:50 Plt Count 162 K/uL (152-406) 10/25/19 05:50 PT 12.6 SECONDS (9.5-12.5) H 10/23/19 14:40 INR 1.07 10/23/19 14:40 Sodium 142 mmol/L (136-145) 10/25/19 05:50 Potassium 4.0 mmol/L (3.5-5.1) 10/25/19 05:50 BUN 52 mg/dL (7-18) H 10/25/19 05:50 Creatinine 2.33 mg/dL (0.55-1.3) H 10/25/19 05:50 Glucose 80 mg/dL (74-106) 10/25/19 05:50 Phosphorus 4.0 mg/dL (2.5-4.9) 10/24/19 05:24 Magnesium 2.2 mg/dL (1.8-2.4) 10/24/19 05:24 Total Bilirubin 0.3 mg/dL (0.2-1.0) 10/23/19 14:40 AST 26 U/L (15-37) 10/23/19 14:40 ALT 31 U/L (12-78) 10/23/19 14:40 Alkaline Phosphatase 156 U/L (45-117) H 10/23/19 14:40 Lipase 144 U/L (73-393) 10/23/19 14:40 Home Medications: Famotidine 40 mg PO DAILY 10/18/19 Furosemide [Lasix*] 40 mg PO DAILY 10/18/19 Hydralazine HCl [Apresoline] 100 mg PO TID 10/18/19 Sertraline [Zoloft*] 100 mg PO DAILY 10/18/19 Sodium Bicarbonate 2 tab PO BID 10/18/19 Zolpidem Tartrate [Ambien*] 5 mg PO BEDTIME PRN 10/18/19 Butalbital/Acetaminophen [Butalbital-Acetaminophn 50-325] 2 tab PO BID PRN 10/24 Colchicine 1 tab PO DAILY 10/24/19 Ferrous Gluconate [Iron] 236 mg PO DAILY 10/24/19 Gabapentin 300 mg PO BID 10/24/19 Ipratropium/Albuterol Sulfate [Iprat-Albut 0.5-3(2.5) mg/3 ml] 1 amp IH Q6H Magnesium Oxide 400 mg PO DAILY 10/24/19 Ondansetron HCl [Zofran] 4 mg PO Q8H 10/24/19 Sodium Polystyrene Sulfon/Sorb [Sps 15 gm/60 ml Suspension] 60 gm PO DIRECTED 10/24/19 carvediloL [Carvedilol] 6.25 mg PO BID 10/24/19 Polyethyl Gly 3350 [Glycolax*] 17 gm PO DAILY PRN #30 udbot 10/25/19 Sennosides [Senna] 17.2 mg PO BID #120 tablet 10/25/19 New Medications: Polyethyl Gly 3350 [Glycolax*] 17 gm PO DAILY PRN #30 udbot PRN Reason: Constipation Sennosides [Senna] 17.2 mg PO BID #120 tablet Diet: AHA Activity: Fall precautions Followup: Huan Figueroa MD [ACTIVE - CAN ADMIT] - 1 Week
== END 2019-10-25 19:05 | disposition home health service (06) ==
LOC: ER 14:14 → ERHOLD 17:40 → 4TH 18:29
PROVIDERS: ADMIT Internal Medicine; ATTEND Internal Medicine
DX: K59.04 Chronic idiopathic constipation (principal); N17.9 Acute kidney failure, unspecified; I12.9 Hypertensive chronic kidney disease with stage 1 through stage 4 chronic kidney disease, or unspecified chronic kidney disease; N18.9 Chronic kidney disease, unspecified; Z88.0 Allergy status to penicillin
CPT/HCPCS: 93005; 87088; 85025 ×3; 87086; 80048 ×3; 36415 ×2; 86900; 83735 ×2; 86850; 84100; 85610; 86901; 82947 ×3; 80076; 82272; 87077; 87186; 85018; 85014; 84484; 83690; 83880; 74176; 71045; 96375; 96374; 99285; J1644 ×4; J2270; G0378 ×3; P9016; J7030 ×5; J2405; 81003; 81015